=== PATIENT | male | born 1995 | race Caucasian/White ===

== ENCOUNTER → 2019-04-20 11:02 | Outpatient (BNVA) | payer MEDICAID, SELFPAY | PROVIDERS: Family Provider Nurse Practitioner Family; PCP Family Medicine; Visit Provider Nurse Practitioner | DX: F84.0 Autistic disorder (principal); F25.9 Schizoaffective disorder, unspecified; F91.3 Oppositional defiant disorder | CPT/HCPCS: 99213 ==

== ENCOUNTER → 2019-06-22 07:58 | Outpatient (BNVA) | payer MEDICAID, SELFPAY | PROVIDERS: Family Provider Nurse Practitioner Family; PCP Family Medicine; Visit Provider Nurse Practitioner | DX: F91.3 Oppositional defiant disorder (principal); F25.9 Schizoaffective disorder, unspecified; F84.0 Autistic disorder | CPT/HCPCS: 99214 ==

== ENCOUNTER → 2019-08-24 07:36 | Outpatient (BNVA) | payer MEDICAID, SELFPAY | PROVIDERS: Family Provider Nurse Practitioner Family; PCP Family Medicine; Visit Provider Nurse Practitioner | DX: F91.3 Oppositional defiant disorder (principal); F25.9 Schizoaffective disorder, unspecified; F84.0 Autistic disorder | CPT/HCPCS: 99213 ==

== ENCOUNTER → 2019-11-17 09:13 | Outpatient (BNVA) | payer MEDICAID, SELFPAY | PROVIDERS: Family Provider Nurse Practitioner Family; PCP Family Medicine; Visit Provider Nurse Practitioner | DX: F91.3 Oppositional defiant disorder (principal); F25.9 Schizoaffective disorder, unspecified; F84.0 Autistic disorder; Z79.899 Other long term (current) drug therapy | CPT/HCPCS: 99214 ==

== ENCOUNTER → 2019-12-23 08:58 | Outpatient (BNVA) | payer MEDICAID, SELFPAY | PROVIDERS: Family Provider Nurse Practitioner Family; PCP Family Medicine; Visit Provider Social Worker Clinical | DX: F84.0 Autistic disorder (principal); F25.9 Schizoaffective disorder, unspecified | CPT/HCPCS: 90832 ==

== ENCOUNTER → 2020-01-06 08:32 | Outpatient (BNVA) | payer MEDICAID, SELFPAY | PROVIDERS: Family Provider Nurse Practitioner Family; PCP Family Medicine; Visit Provider Social Worker Clinical | DX: F84.0 Autistic disorder (principal); F25.9 Schizoaffective disorder, unspecified | CPT/HCPCS: 90832 ==

== ENCOUNTER → 2020-01-13 09:10 | Outpatient (BNVA) | payer MEDICAID, SELFPAY | PROVIDERS: Family Provider Nurse Practitioner Family; PCP Family Medicine; Visit Provider Nurse Practitioner | DX: F91.3 Oppositional defiant disorder (principal); F25.9 Schizoaffective disorder, unspecified; F84.0 Autistic disorder | CPT/HCPCS: 99213 ==

== ENCOUNTER → 2020-01-25 08:23 | Outpatient (BNVA) | payer MEDICAID, SELFPAY | PROVIDERS: Family Provider Nurse Practitioner Family; PCP Family Medicine; Visit Provider Social Worker Clinical | DX: F84.0 Autistic disorder (principal); F25.9 Schizoaffective disorder, unspecified | CPT/HCPCS: 90832 ==

== ENCOUNTER → 2020-02-23 08:55 | Outpatient (BNVA) | payer MEDICAID, SELFPAY | PROVIDERS: Family Provider Nurse Practitioner Family; PCP Family Medicine; Visit Provider Social Worker Clinical | DX: F91.0 Conduct disorder confined to family context (principal); F84.0 Autistic disorder | CPT/HCPCS: 90832 ==

== ENCOUNTER → 2020-03-17 08:37 | Outpatient (BNVA) | payer MEDICAID, SELFPAY | PROVIDERS: Family Provider Nurse Practitioner Family; PCP Family Medicine; Visit Provider Nurse Practitioner | DX: F91.3 Oppositional defiant disorder (principal); F25.9 Schizoaffective disorder, unspecified; F84.0 Autistic disorder | CPT/HCPCS: 99214 ==

== ENCOUNTER → 2020-03-18 09:19 | Outpatient (BNVA) | payer MEDICAID, SELFPAY | PROVIDERS: Family Provider Nurse Practitioner Family; PCP Family Medicine; Visit Provider Counselor Mental Health | DX: F91.3 Oppositional defiant disorder (principal); F84.0 Autistic disorder | CPT/HCPCS: 90832 ==

== ENCOUNTER → 2020-03-25 10:45 | Outpatient (BNVA) | payer MEDICAID, SELFPAY | PROVIDERS: Family Provider Nurse Practitioner Family; PCP Family Medicine; Visit Provider Counselor Mental Health | DX: F91.3 Oppositional defiant disorder (principal); F84.0 Autistic disorder | CPT/HCPCS: 90832 ==

== ENCOUNTER → 2020-04-08 09:38 | Outpatient (BNVA) | payer MEDICAID, SELFPAY | PROVIDERS: Family Provider Nurse Practitioner Family; PCP Family Medicine; Visit Provider Counselor Mental Health | DX: F91.3 Oppositional defiant disorder (principal); F84.0 Autistic disorder | CPT/HCPCS: 90832 ==

== ENCOUNTER → 2020-05-02 08:49 | Outpatient (BNVA) | payer MEDICAID, SELFPAY | PROVIDERS: Family Provider Nurse Practitioner Family; PCP Family Medicine; Visit Provider Counselor Mental Health | DX: F91.3 Oppositional defiant disorder (principal); F84.0 Autistic disorder | CPT/HCPCS: 90832 ==

== ENCOUNTER → 2020-05-09 08:50 | Outpatient (BNVA) | payer MEDICAID, SELFPAY | PROVIDERS: Family Provider Nurse Practitioner Family; PCP Family Medicine; Visit Provider Counselor Mental Health | DX: F91.3 Oppositional defiant disorder (principal); F84.0 Autistic disorder | CPT/HCPCS: 90832 ==

== ENCOUNTER → 2020-05-16 07:33 | Outpatient (BNVA) | payer MEDICAID, SELFPAY | PROVIDERS: Family Provider Nurse Practitioner Family; PCP Family Medicine; Visit Provider Nurse Practitioner | DX: F91.3 Oppositional defiant disorder (principal); F25.9 Schizoaffective disorder, unspecified; F84.0 Autistic disorder | CPT/HCPCS: 99214 ==

== ENCOUNTER 2020-05-21 15:11 | Emergency (ER) | payer MEDICAID, SELFPAY ==
[2020-05-21 15:22] VITALS: BP 142/90; PULSE 105; RESP 18; TEMP 36.2; O2SAT 98; BMI 35.3
[2020-05-21] MEDS: sodium chloride 0.9% 1,000 ML 999 ML IV (16:03)
[2020-05-21 16:18] LABS: Basophils # 0.1 10^3/uL (0.0-0.1); Basophils % 0.6 %; Eosinophils # 0.2 10^3/uL (0.0-0.8); Hematocrit 45.8 % (42.0-52.0); Hemoglobin 14.4 g/dL (11.7-16.6); Lymphocytes # 1.8 10^3/uL (0.8-4.8); Lymphocytes % 20.4 %; Mean Corpuscular HGB Conc 31.4 g/dL (30.0-36.0); Mean Corpuscular Hemoglobin 26.2 pg (28.0-34.0); Mean Corpuscular Volume 83.4 fL (80-94); Mean Platelet Volume 9.6 fL (7.4-10.4); Monocytes # 0.5 10^3/uL (0.2-0.9); Neutrophils # 6.27 10^3/uL (1.8-7.7); Neutrophils % 70.9 %; Nucleated Red Blood Cells % 0 %; Platelet Count 342 10^3/cmm (130-400); Red Blood Count 5.49 10^6/uL (4.1-5.3); Red Cell Distribution Width 13.2 % (12.1-15.1); White Blood Count 8.8 10^3/uL (4.0-10.0)
--- NOTE | 2020-05-21 16:21 | CTR_ITS ---
PROCEDURE INFORMATION: Exam: CT Head Without Contrast Exam date and time: 05/21/2020 4:27 PM Age: 24 years old Clinical indication: Condition or disease; Convulsions or seizures; Unspecified; Patient HX: Seizure activity - recent med changes TECHNIQUE: Imaging protocol: Computed tomography of the head without contrast. Radiation optimization: All CT scans at this facility use at least one of these dose optimization techniques: automated exposure control; mA and/or kV adjustment per patient size (includes targeted exams where dose is matched to clinical indication); or iterative reconstruction. COMPARISON: No relevant prior studies available. RADIATION DOSE METRICS: Total DLP (mGy-cm): 1807.02 FINDINGS: Limitations: The study is slightly limited by mild patient motion artifact. Brain: No intracranial hemorrhage noted. No parenchymal edema identified. Cerebral ventricles: The ventricles are proportional to the sulci. No hydrocephalus is noted. Bones/joints: No fracture or other acute osseous abnormality. Paranasal sinuses: The paranasal sinuses, as demonstrated, appear clear. Mastoid air cells: The mastoid air cells are clear bilaterally. Soft tissues: The soft tissues appear unremarkable. CT/CT head wo con* [id number] IMPRESSION: 1. The study is slightly limited by mild patient motion artifact. 2. No acute intracranial abnormality demonstrated. Radiation Dose CTDIVOL = (mGy): DLP = 1807.02 (mGy-cm)
[2020-05-21] MEDS: LORazepam 2 mg/mL INJ 1 mL 0.5 MG IVP (16:28)
[2020-05-21 16:34] LABS: Alanine Aminotransferase 141 U/L (0-41); Albumin Level 4.4 g/dL (3.5-5.2); Alkaline Phosphatase 101 IU/L (40-130); Aspartate Amino Transferase 67 U/L (0-40); Blood Urea Nitrogen 10 mg/dL (6-20); Calcium 9.6 mg/dL (8.5-10.5); Carbon Dioxide 31 mmol/L (22-29); Chloride 99 mmol/L (98-107); Globulin 3.2 g/dL (1.3-4.6); Glucose 101 mg/dL (65-115); Osmolality Calculated 285 mOsm/kg (285-295); Sodium 138 mmol/L (136-145); Total Bilirubin 0.3 mg/dL (0.15-1.2); Total Protein 7.6 g/dL (6.6-8.7)
[2020-05-21 16:41] LABS: Acetaminophen < 5.0 ug/mL (10-30); Alcohol Level < 10 mg/dL (0-10); Salicylate < 0.3 mg/dL (3-10)
[2020-05-21 17:41] LABS: Add Urine Microscopic? NO
[2020-05-21 17:47] LABS: Bilirubin Urine Neg (Negative); Blood Urine Neg (Negative); Glucose Urine UA Norm (Normal); Ketones Urine Negative (Negative); Leukocyte Esterase Urine Negative (Negative); Nitrate Urine Negative (Negative); Protein Urine Neg (Negative); Urine Appearance Clear (CLEAR); Urine Color Straw (Yellow); Urobilinogen Urine Norm (Negative); pH Urine 7 (5-7)
[2020-05-21 17:54] LABS: Amphetamines Screen Urine Negative (Negative); Barbiturates Screen Urine Negative (Negative); Benzodiazepines Screen Urine Negative (Negative); Cocaine Screen Urine Negative (Negative); Opiate Screen Urine Negative (Negative); PCP Screen Urine Negative (Negative); THC Screen Urine Negative (Negative)
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
[2020-05-21 18:48] VITALS: BP 142/69; RESP 16; O2SAT 100
[2020-05-22 05:45] LABS: Hepatitis A Antibody IgM Non-Reactive (Nonreactive); Hepatitis B Core IgM Non-Reactive (Nonreactive); Hepatitis B Surface Antigen Non-Reactive (Nonreactive); Hepatitis C Virus Antibody Non-Reactive (Nonreactive)
== END 2020-05-21 18:49 | disposition home or self-care (01) ==
PROVIDERS: Emergency Provider Family Medicine; PCP Family Medicine
DX: G40.A09 Absence epileptic syndrome, not intractable, without status epilepticus (principal); R45.1 Restlessness and agitation; F84.0 Autistic disorder
CPT/HCPCS: 70450; 80053; 80074; 80306; 80307; 81003; 85025; 96361; 96374; 99284; J2060; J7030

== ENCOUNTER → 2020-05-24 15:13 | Outpatient (BNVA) | payer MEDICAID, SELFPAY | PROVIDERS: Family Provider Nurse Practitioner Family; PCP Family Medicine; Visit Provider Counselor Mental Health | DX: F91.3 Oppositional defiant disorder (principal); F84.0 Autistic disorder | CPT/HCPCS: 90832 ==

== ENCOUNTER → 2020-05-31 12:50 | Outpatient (BNVA) | payer MEDICAID, SELFPAY | PROVIDERS: Family Provider Nurse Practitioner Family; PCP Family Medicine; Visit Provider Counselor Mental Health | DX: F91.3 Oppositional defiant disorder (principal); F84.0 Autistic disorder; F25.9 Schizoaffective disorder, unspecified; Z79.899 Other long term (current) drug therapy | CPT/HCPCS: 90832 ==

== ENCOUNTER → 2020-06-06 08:51 | Outpatient (BNVA) | payer MEDICAID, SELFPAY | PROVIDERS: Family Provider Nurse Practitioner Family; PCP Family Medicine; Visit Provider Counselor Mental Health | DX: F91.3 Oppositional defiant disorder (principal); F84.0 Autistic disorder; F25.9 Schizoaffective disorder, unspecified; Z79.899 Other long term (current) drug therapy | CPT/HCPCS: 90832 ==

== ENCOUNTER → 2020-06-07 09:27 | Outpatient (BNVA) | payer MEDICAID, SELFPAY | PROVIDERS: Family Provider Nurse Practitioner Family; PCP Family Medicine; Visit Provider Nurse Practitioner | DX: F91.3 Oppositional defiant disorder (principal); F25.9 Schizoaffective disorder, unspecified; F84.0 Autistic disorder; R94.31 Abnormal electrocardiogram [ECG] [EKG] | CPT/HCPCS: 99214 ==

== ENCOUNTER → 2020-06-13 12:49 | Outpatient (BNVA) | payer MEDICAID, SELFPAY | PROVIDERS: Family Provider Nurse Practitioner Family; PCP Family Medicine; Visit Provider Counselor Mental Health | DX: F91.3 Oppositional defiant disorder (principal); F84.0 Autistic disorder; F25.9 Schizoaffective disorder, unspecified; Z79.899 Other long term (current) drug therapy | CPT/HCPCS: 90832 ==

== ENCOUNTER → 2020-06-27 13:48 | Outpatient (BNVA) | payer MEDICAID, SELFPAY | PROVIDERS: Family Provider Nurse Practitioner Family; PCP Family Medicine; Visit Provider Counselor Mental Health | DX: F91.3 Oppositional defiant disorder (principal); F84.0 Autistic disorder; F25.9 Schizoaffective disorder, unspecified; Z79.899 Other long term (current) drug therapy | CPT/HCPCS: 90834 ==

== ENCOUNTER → 2020-07-04 12:47 | Outpatient (BNVA) | payer MEDICAID, SELFPAY | PROVIDERS: Family Provider Nurse Practitioner Family; PCP Family Medicine; Visit Provider Nurse Practitioner | DX: F25.9 Schizoaffective disorder, unspecified (principal); F84.0 Autistic disorder; F91.3 Oppositional defiant disorder | CPT/HCPCS: 99214 ==

== ENCOUNTER → 2020-07-11 12:56 | Outpatient (BNVA) | payer MEDICAID, SELFPAY | PROVIDERS: Family Provider Nurse Practitioner Family; PCP Family Medicine; Visit Provider Counselor Mental Health | DX: F91.3 Oppositional defiant disorder (principal); F84.0 Autistic disorder; F25.9 Schizoaffective disorder, unspecified; Z79.899 Other long term (current) drug therapy | CPT/HCPCS: 90847; 90834 ==

== ENCOUNTER → 2020-07-25 14:05 | Outpatient (BNVA) | payer MEDICAID, SELFPAY | PROVIDERS: Family Provider Nurse Practitioner Family; PCP Family Medicine; Visit Provider Counselor Mental Health | DX: F91.3 Oppositional defiant disorder (principal); F84.0 Autistic disorder; F25.9 Schizoaffective disorder, unspecified; Z79.899 Other long term (current) drug therapy | CPT/HCPCS: 90832 ==

== ENCOUNTER → 2020-08-01 13:02 | Outpatient (BNVA) | payer MEDICAID, SELFPAY | PROVIDERS: Family Provider Nurse Practitioner Family; PCP Family Medicine; Visit Provider Nurse Practitioner | DX: F91.3 Oppositional defiant disorder (principal); F25.9 Schizoaffective disorder, unspecified; F84.0 Autistic disorder | CPT/HCPCS: 99214 ==

== ENCOUNTER → 2020-08-29 14:15 | Outpatient (BNVA) | payer MEDICAID, SELFPAY | PROVIDERS: Family Provider Nurse Practitioner Family; PCP Family Medicine; Visit Provider Nurse Practitioner | DX: F25.9 Schizoaffective disorder, unspecified (principal); F84.0 Autistic disorder; F91.3 Oppositional defiant disorder | CPT/HCPCS: 99214 ==

== ENCOUNTER → 2020-10-04 07:08 | Outpatient (BNVA) | payer MEDICAID, SELFPAY | PROVIDERS: Family Provider Nurse Practitioner Family; PCP Family Medicine; Visit Provider Nurse Practitioner | DX: F91.3 Oppositional defiant disorder (principal); F25.9 Schizoaffective disorder, unspecified; F84.0 Autistic disorder | CPT/HCPCS: 99214 ==

== ENCOUNTER → 2020-11-29 12:41 | Outpatient (BNVA) | payer MEDICAID, SELFPAY | PROVIDERS: Family Provider Nurse Practitioner Family; PCP Family Medicine; Visit Provider Nurse Practitioner | DX: F91.3 Oppositional defiant disorder (principal); F25.9 Schizoaffective disorder, unspecified; F84.0 Autistic disorder; F70 Mild intellectual disabilities | CPT/HCPCS: 99214 ==

== ENCOUNTER → 2020-12-07 08:32 | Outpatient (BNVA) | payer MEDICAID, SELFPAY | PROVIDERS: Family Provider Nurse Practitioner Family; PCP Family Medicine; Visit Provider Counselor Mental Health | DX: F91.3 Oppositional defiant disorder (principal); F84.0 Autistic disorder; F25.9 Schizoaffective disorder, unspecified; Z79.899 Other long term (current) drug therapy | CPT/HCPCS: 90832; 90847 ==

== ENCOUNTER → 2021-02-22 12:44 | Outpatient (BNVA) | payer MEDICAID, SELFPAY | PROVIDERS: Family Provider Nurse Practitioner Family; PCP Family Medicine; Visit Provider Nurse Practitioner | DX: F91.3 Oppositional defiant disorder (principal); F25.9 Schizoaffective disorder, unspecified; F84.0 Autistic disorder; F70 Mild intellectual disabilities | CPT/HCPCS: 99214 ==

== ENCOUNTER → 2021-03-21 07:59 | Outpatient (BNVA) | payer MEDICAID, SELFPAY | PROVIDERS: Family Provider Nurse Practitioner Family; PCP Family Medicine; Visit Provider Counselor Mental Health | DX: F91.3 Oppositional defiant disorder (principal); F84.0 Autistic disorder; F25.9 Schizoaffective disorder, unspecified; Z79.899 Other long term (current) drug therapy | CPT/HCPCS: 90834 ==

== ENCOUNTER → 2021-04-25 08:33 | Outpatient (BNVA) | payer MEDICAID, SELFPAY | PROVIDERS: Family Provider Nurse Practitioner Family; PCP Family Medicine; Visit Provider Counselor Mental Health | DX: F91.3 Oppositional defiant disorder (principal); F25.9 Schizoaffective disorder, unspecified; F84.0 Autistic disorder; Z79.899 Other long term (current) drug therapy | CPT/HCPCS: 90847 ==

== ENCOUNTER → 2021-05-17 10:51 | Outpatient (BNVA) | payer MEDICAID, SELFPAY | PROVIDERS: Family Provider Nurse Practitioner Family; PCP Family Medicine; Visit Provider Nurse Practitioner | DX: F70 Mild intellectual disabilities (principal); F91.3 Oppositional defiant disorder; F25.9 Schizoaffective disorder, unspecified; F84.0 Autistic disorder | CPT/HCPCS: 99214 ==

== ENCOUNTER → 2021-07-10 12:49 | Outpatient (BNVA) | payer MEDICAID, SELFPAY | PROVIDERS: Family Provider Nurse Practitioner Family; PCP Family Medicine; Visit Provider Nurse Practitioner | DX: F91.3 Oppositional defiant disorder (principal); F25.9 Schizoaffective disorder, unspecified; F84.0 Autistic disorder; F70 Mild intellectual disabilities | CPT/HCPCS: 99214 ==

== ENCOUNTER → 2021-08-14 13:53 | Outpatient (BNVA) | payer MEDICAID, SELFPAY | PROVIDERS: Family Provider Nurse Practitioner Family; PCP Family Medicine; Visit Provider Counselor Mental Health | DX: F91.3 Oppositional defiant disorder (principal); F84.0 Autistic disorder; F25.9 Schizoaffective disorder, unspecified; Z79.899 Other long term (current) drug therapy | CPT/HCPCS: 90834 ==

== ENCOUNTER → 2021-08-28 13:43 | Outpatient (BNVA) | payer MEDICAID, SELFPAY | PROVIDERS: Family Provider Nurse Practitioner Family; PCP Family Medicine; Visit Provider Counselor Mental Health | DX: F91.3 Oppositional defiant disorder (principal); F84.0 Autistic disorder; F25.9 Schizoaffective disorder, unspecified; Z79.899 Other long term (current) drug therapy | CPT/HCPCS: 90834 ==

== ENCOUNTER → 2021-09-04 10:41 | Outpatient (BNVA) | payer MEDICAID, SELFPAY | PROVIDERS: Family Provider Nurse Practitioner Family; PCP Family Medicine; Visit Provider Counselor Mental Health | DX: F91.3 Oppositional defiant disorder (principal); F84.0 Autistic disorder; F25.9 Schizoaffective disorder, unspecified; Z79.899 Other long term (current) drug therapy | CPT/HCPCS: 90834 ==

== ENCOUNTER → 2021-09-06 12:45 | Outpatient (BNVA) | payer MEDICAID, SELFPAY | PROVIDERS: Family Provider Nurse Practitioner Family; PCP Family Medicine; Visit Provider Nurse Practitioner | DX: F91.3 Oppositional defiant disorder (principal); F25.9 Schizoaffective disorder, unspecified; F84.0 Autistic disorder; F70 Mild intellectual disabilities | CPT/HCPCS: 99214 ==

== ENCOUNTER 2021-12-10 23:39 | Emergency (ER) | payer MEDICAID, SELFPAY ==
[2021-12-10 23:58] VITALS: BP 188/133; PULSE 109; RESP 26; TEMP 36.6; O2SAT 95; BMI 35.2
--- NOTE | 2021-12-11 00:15 | PC.NURSE ---
patient assisted to bathroom, continuing child like behavior, cooperative and pleasant, states that he peed his pants. urine sample was obtained at this time. clear yellow.
[2021-12-11 00:54] LABS: Add Urine Microscopic? NO
[2021-12-11 00:55] LABS: Bilirubin Urine Negative (Negative); Blood Urine Negative (Negative); Charge for UA Resulting for Rev; Glucose Urine UA Negative (Normal); Ketones Urine Negative (Negative); Leukocyte Esterase Urine Negative (Negative); Nitrate Urine Negative; Protein Urine Negative; Specific Gravity, Urine 1.025 (1.005-1.030); Urine Appearance Clear (CLEAR); Urine Color Yellow (Yellow); Urobilinogen Urine 0.2 mg/dL (Negative); pH Urine 6.5 (5-7)
--- NOTE | 2021-12-11 00:57 | PC.NURSE ---
patient crying in room, repeatedly calling for staff, stating he feels sorry for his parents, repeatedly attempting to exit room and go inside nursing station. patient redirected, attempted de-escalation.
[2021-12-11] MEDS: haloperidol inj 5 mg/mL INJ 1 mL IM (01:01)
--- NOTE | 2021-12-11 01:03 | PC.NURSE ---
patient asking to be covered up with a blanket, asking for staff to sit with him. patient speaking in a baby or child like voice. patient assisted to position of comfort, assessed, denies pain or injury or distress.
[2021-12-11 01:05] LABS: Amphetamines Screen Urine Negative (Negative); Barbiturates Screen Urine Negative (Negative); Benzodiazepines Screen Urine Negative (Negative); Cocaine Screen Urine Negative (Negative); Opiate Screen Urine Negative (Negative); PCP Screen Urine Negative (Negative); THC Screen Urine Negative (Negative)
--- NOTE | 2021-12-11 01:14 | PC.NURSE ---
patient repeatedly asking for staff, stating he is worried about his parents and dogs. patient comforted, active listening used.
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
[2021-12-11 01:43] VITALS: PULSE 85; RESP 18; O2SAT 92
--- NOTE | 2021-12-11 01:43 | PC.NURSE ---
patient resting eyes closed resp even and unlabored nad.
[2021-12-11 02:14] VITALS: BP 135/101; PULSE 118; RESP 18; TEMP 36.7; O2SAT 95; BMI 36.9
--- NOTE | 2021-12-11 02:38 | PC.NURSE ---
report given to geremias MCDERMOTT who is assuming care of patient.
== END 2021-12-11 09:50 | disposition home or self-care (01) ==
PROVIDERS: Emergency Provider Emergency Medicine; PCP Family Medicine
DX: F84.0 Autistic disorder (principal); F91.3 Oppositional defiant disorder; F25.9 Schizoaffective disorder, unspecified; Z79.84 Long term (current) use of oral hypoglycemic drugs
CPT/HCPCS: 80306; 81003; 96372; 99284; J1630

== ENCOUNTER 2023-09-22 16:27 | Emergency (ER) | payer MEDICAID, SELFPAY ==
[2023-09-22 16:32] VITALS: BP 148/80; PULSE 89; RESP 16; TEMP 36.8; O2SAT 95
--- NOTE | 2023-09-22 17:18 | W.ED.SEIZURE ---
HPI - Seizure General: Chief Complaint: Seizure Stated Complaint: had convulsions in the last hour Time Seen by Provider: 09/22/23 17:17 History of Present Illness: HPI Narrative: 27-year-old male patient was brought in by caregiver staff at his residential facility that he resides. Patient was noted to have 4 separate seizures seemingly [id number] within 30 minutes ranging from 10 seconds to 1 minute. Patient recently moved into the facility approximately 2 weeks ago. Staff members think that might be due to some stress because he had just talked to his mom on the phone just prior to the seizure. Staff said they talk to the mother again after the seizure episodes may recommend and she wished that he would be evaluated further in the emergency room to ensure no other signs of illness or injury was noted. Patient has no visible injuries. Patient is at baseline for self. Review of Systems General: Reports: 10 or more systems reviewed and unremarkable except in HPI and below Neuro: Reports: seizure-like activity [facility] ED PFSH: Medical History Autistic disorder Baseline state EKG abnormalities Mild intellectual disabilities On high dose antipsychotic drug therapy Oppositional defiant disorder Psychiatric care Schizoaffective disorder, unspecified Social History Smoking and tobacco/nicotine status: never used tobacco/nicotine Physical Exam Const: COMMON NORMALS: alert HENMT: COMMON NORMALS: normocephalic HEAD & SCALP: normocephalic Neck/C-Spine: COMMON NORMALS: full ROM Resp: COMMON NORMALS: normal respiratory effort and clear to auscultation bilaterally AUSCULTATION: clear to auscultation bilaterally Cardio: COMMON NORMALS: regular rate and regular rhythm RATE: regular rate RHYTHM: regular rhythm GI: COMMON NORMALS: Soft to palpation and non-tender PALPATION: Yes Soft to palpation Back/Pelvis: COMMON NORMALS: thoracic and lumbar spine normal to inspection Extremity: COMMON NORMALS: normal to inspection Neuro: SENSORIUM/ORIENTATION: Yes alert Skin: COMMON NORMALS: turgor normal GENERAL SKIN EXAM: turgor normal Course Vital Signs: Vital signs: Vital Signs Temperature 98.3 F 09/22/23 16:32 Pulse Rate 75 09/22/23 20:00 Respiratory Rate 18 09/22/23 20:00 Blood Pressure 130/72 09/22/23 20:00 Pulse Oximetry 96 09/22/23 20:00 Oxygen Delivery Me thod Room Air 09/22/23 18:07 MDM - Seizure MDM Narrative Medical decision making narrative: 27-year-old male patient comes in today for evaluation of seizure activity. Patient appears nontoxic. Patient appears in no acute distress. Respirations are even lungs are clear to auscultation. No focal neural deficits are noted. Patient is acting normal for self. Vital signs are normal except for some mild elevation of blood pressure at 148/80. Differential diagnosis includes but not limited to epileptic seizure, pseudoseizure, malingering, dehydration, electrolyte imbalance, anxiety disorder. Patient was resting well and his mother came in and his blood pressure elevated with his mother being here. Patient was then given clonidine and a dose of 1 mg of Ativan. CBC CMP was unremarkable. I believe that patient most likely had behavioral type seizures versus actual exacerbation of his epilepsy. Patient had no biting of the tongue and no urinary incontinence. Patient was recommended to follow-up with his primary care regarding his elevated blood pressure in the ER. Patient did have improvement of his blood pressure it was 130/72 at discharge. Lab Data 09/22/23 18:19 09/22/23 18:19 Labs: Laboratory Results WBC 10.50 10^3/uL (3.29-11.43) 09/22/23 18:19 RBC 5.02 10^6/uL (3.85-5.65) 09/22/23 18:19 Hgb 14.50 g/dL (11.27-16.99) 09/22/23 18:19 Hct 42.8 % (37-53) 09/22/23 18:19 MCV 85.3 fl (82-101) 09/22/23 18:19 MCH 28.9 pg (27-33) 09/22/23 18:19 MCHC 33.9 g/dL (30-55) 09/22/23 18:19 RDW 13.0 % (12.1-15.1) 09/22/23 18:19 Plt Count 288 10^3/cmm (157-399) 09/22/23 18:19 MPV 9.8 fL (7.4-10.4) 09/22/23 18:19 Neut % (Auto) 49.2 % 09/22/23 18:19 Lymph % (Auto) 40.0 % 09/22/23 18:19 Kay % (Auto) 8.2 % 09/22/23 18:19 Eos % (Auto) 1.8 % 09/22/23 18:19 Baso % (Auto) 0.6 % 09/22/23 18:19 Neut # (Auto) 5.17 10^3/uL (1.8-7.7) 09/22/23 18:19 Lymph # (Auto) 4.2 10^3/uL (0.8-4.8) 09/22/23 18:19 Kay # (Auto) 0.9 10^3/uL (0.2-0.9) 09/22/23 18:19 Eos # (Auto) 0.2 10^3/uL (0.0-0.8) 09/22/23 18:19 Baso # (Auto) 0.1 10^3/uL (0.0-0.1) 09/22/23 18:19 Nucleated RBC % (auto) 0 % 09/22/23 18:19 Nucleated RBCs # 0.0 /100WBC 09/22/23 18:19 Sodium 140 mmol/L (136-145) 09/22/23 18:19 Potassium 3.4 mmol/L (3.5-5.1) L 09/22/23 18:19 Chloride 101 mmol/L (98-107) 09/22/23 18:19 Carbon Dioxide 28 mmol/L (22-29) 09/22/23 18:19 Anion Gap 14.4 (5-19) 09/22/23 18:19 BUN 10 mg/dL (6-20) 09/22/23 18:19 Creatinine 0.6 mg/dL (0.7-1.2) L 09/22/23 18:19 GFR Calculation 162.9 mL/min (90-130) H 09/22/23 18:19 Glucose 99 mg/dL (65-115) 09/22/23 18:19 Calculated Osmolality 289 mOsm/kg (285-295) 09/22/23 18:19 Calcium 9.2 mg/dL (8.5-10.5) 09/22/23 18:19 Total Bilirubin 0.3 mg/dL (0.15-1.2) 09/22/23 18:19 AST 36 U/L (0-40) 09/22/23 18:19 ALT 92 U/L (0-41) H 09/22/23 18:19 Alkaline Phosphatase 91 U/L (40-130) 09/22/23 18:19 Total Protein 7.0 g/dL (6.6-8.7) 09/22/23 18:19 Albumin 4.3 g/dL (3.5-5.2) 09/22/23 18:19 Globulin 2.7 g/dL (1.3-4.6) 09/22/23 18:19 No radiology studies performed this visit Discharge Plan Discharge Patient Disposition: Home Clinical Impression: Epileptic seizure, Benign essential HTN Condition: Stable Prescriptions: No Action metformin 500 mg tablet 500 mg PO BID melatonin 10 mg capsule 10 mg PO .HS Qty: 30 1RF atorvastatin 20 mg tablet 20 mg PO DAILY lisinopril 5 mg tablet 5 mg PO DAILY lamotrigine 100 mg tablet 250 mg .ROUTE .COMPLEX Rx Instructions: 250 mg; fluvoxamine 100 mg tablet 100 mg PO DAILY Qty: 30 2RF paliperidone 6 mg tablet extended release 24hr 12 mg PO QAM Qty: 60 1RF trazodone 100 mg tablet See Rx Instructions .ROUTE .COMPLEX Qty: 120 0RF Dose Instruction: TAKE 4 TABLETS BY MOUTH DAILY Rx Instructions: TAKE 4 TABLETS BY MOUTH DAILY Vimpat 150 mg Tablet 150 mg PO BID@08,21 Discharge Orders: Discharge ED (Routine); Ordered 09/22/23 Ordered By: Agustin Tena Referrals: Celeste Humphries MD [Primary Care Provider] - Discharge Diet: Usual diet Discharge Activity: Increase activity as tolerated Patient Instructions: Epilepsy (ED) Activity Restrictions/Additional Instructions: Follow-up with primary care in 3 to 5 days for recheck of blood pressure. Continue with routine medications as directed. Return to ER as needed. Coding Level of Care Code ED Cut Off Saw Grader for Severiano Cervantes
[2023-09-22 18:07] VITALS: BP 152/78; PULSE 84; O2SAT 96
[2023-09-22 18:24] LABS: Basophils # 0.1 10^3/uL (0.0-0.1); Basophils % 0.6 %; Eosinophils # 0.2 10^3/uL (0.0-0.8); Eosinophils % 1.8 %; Hematocrit 42.8 % (37-53); Lymphocytes # 4.2 10^3/uL (0.8-4.8); Mean Corpuscular HGB Conc 33.9 g/dL (30-55); Mean Corpuscular Hemoglobin 28.9 pg (27-33); Mean Corpuscular Volume 85.3 fl (82-101); Mean Platelet Volume 9.8 fL (7.4-10.4); Monocytes # 0.9 10^3/uL (0.2-0.9); Monocytes % 8.2 %; Neutrophils # 5.17 10^3/uL (1.8-7.7); Neutrophils % 49.2 %; Nucleated Red Blood Cells % 0 %; Platelet Count 288 10^3/cmm (157-399); Red Blood Count 5.02 10^6/uL (3.85-5.65)
[2023-09-22 18:48] LABS: Alanine Aminotransferase 92 U/L (0-41); Albumin Level 4.3 g/dL (3.5-5.2); Alkaline Phosphatase 91 U/L (40-130); Anion Gap 14.4 (5-19); Aspartate Amino Transferase 36 U/L (0-40); Blood Urea Nitrogen 10 mg/dL (6-20); Calcium 9.2 mg/dL (8.5-10.5); Carbon Dioxide 28 mmol/L (22-29); Chloride 101 mmol/L (98-107); Creatinine Clr Calc Pharmacy 240.7363; Globulin 2.7 g/dL (1.3-4.6); Glomerular Filtration Rate 162.9 mL/min (90-130); Glucose 99 mg/dL (65-115); Osmolality Calculated 289 mOsm/kg (285-295); Potassium 3.4 mmol/L (3.5-5.1); Sodium 140 mmol/L (136-145); Total Bilirubin 0.3 mg/dL (0.15-1.2)
[2023-09-22 18:54] VITALS: BP 160/110
[2023-09-22] MEDS: LORazepam 2 mg Tablet PO (18:54)
[2023-09-22] MEDS: cloNIDine 0.1 mg Tablet PO (18:54)
[2023-09-22 18:55] VITALS: BP 169/110; PULSE 84; O2SAT 95
[2023-09-22 20:00] VITALS: BP 130/72; PULSE 75; RESP 18; O2SAT 96
== END 2023-09-22 20:11 | disposition home or self-care (01) ==
PROVIDERS: Emergency Medicine; Emergency Provider Nurse Practitioner Family; PCP Family Medicine
DX: G40.909 Epilepsy, unspecified, not intractable, without status epilepticus (principal); I10 Essential (primary) hypertension; Z79.899 Other long term (current) drug therapy
CPT/HCPCS: 36415; 80053; 85025; 99283

== ENCOUNTER 2023-10-14 17:37 | Inpatient (IN) | payer MEDICAID, SELFPAY ==
[2023-10-14 17:45] VITALS: BP 144/79; PULSE 81; TEMP 36.9; O2SAT 96; BMI 39.9
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
[2023-10-14 18:59] LABS: Basophils # 0.1 10^3/uL (0.0-0.1); Basophils % 0.6 %; Eosinophils # 0.2 10^3/uL (0.0-0.8); Hematocrit 39.3 % (37-53); Lymphocytes # 2.3 10^3/uL (0.8-4.8); Lymphocytes % 26.5 %; Mean Corpuscular HGB Conc 33.8 g/dL (30-55); Mean Corpuscular Volume 85.6 fl (82-101); Mean Platelet Volume 9.6 fL (7.4-10.4); Monocytes # 0.8 10^3/uL (0.2-0.9); Monocytes % 9.7 %; Neutrophils # 5.11 10^3/uL (1.8-7.7); Neutrophils % 60.3 %; Nucleated Red Blood Cells % 0 %; Platelet Count 363 10^3/cmm (157-399); Red Blood Count 4.59 10^6/uL (3.85-5.65); Red Cell Distribution Width 12.7 % (12.1-15.1); White Blood Count 8.48 10^3/uL (3.29-11.43)
[2023-10-14 19:24] VITALS: BP 133/78; PULSE 78; RESP 16; O2SAT 96
[2023-10-14 19:40] LABS: Alanine Aminotransferase 112 U/L (0-41); Albumin Level 4.4 g/dL (3.5-5.2); Alkaline Phosphatase 102 U/L (40-130); Anion Gap 17.7 (5-19); Aspartate Amino Transferase 39 U/L (0-40); Blood Urea Nitrogen 10 mg/dL (6-20); Calcium 9.4 mg/dL (8.5-10.5); Carbon Dioxide 25 mmol/L (22-29); Chloride 104 mmol/L (98-107); Creatinine Clr Calc Pharmacy 241.2156; Globulin 2.8 g/dL (1.3-4.6); Glomerular Filtration Rate 162.9 mL/min (90-130); Glucose 87 mg/dL (65-115); Osmolality Calculated 294 mOsm/kg (285-295); Potassium 3.7 mmol/L (3.5-5.1); Sodium 143 mmol/L (136-145); Total Bilirubin 0.4 mg/dL (0.15-1.2); Total Protein 7.2 g/dL (6.6-8.7)
[2023-10-14 19:45] LABS: Acetaminophen < 5.0 ug/mL (10-30); Alcohol Level < 10 mg/dL (0-10); Salicylate < 0.3 mg/dL (3-10)
[2023-10-14 19:53] LABS: Amphetamines Screen Urine Negative (Negative); Barbiturates Screen Urine Negative (Negative); Benzodiazepines Screen Urine Negative (Negative); Cocaine Screen Urine Negative (Negative); Opiate Screen Urine Negative (Negative); PCP Screen Urine Negative (Negative); THC Screen Urine Negative (Negative)
[2023-10-14 22:18] VITALS: BP 133/78; PULSE 78; RESP 16; TEMP 36.9; O2SAT 96
[2023-10-14 22:54] VITALS: BP 147/87; PULSE 79; RESP 22; TEMP 36.8; O2SAT 98
[2023-10-15 06:00] VITALS: BP 132/88; PULSE 82; RESP 18; TEMP 36.7; O2SAT 97
[2023-10-15] MEDS: lacosamide 50 mg Tablet 150 MG PO ×2 (07:44→20:24)
[2023-10-15] MEDS: atorvastatin 40 mg Tablet 20 MG PO (07:45)
[2023-10-15] MEDS: lamoTRIgine 100 mg Tablet 200 MG PO (07:45)
[2023-10-15] MEDS: metformin 500 mg Tablet 1000 MG PO (07:46)
[2023-10-15] MEDS: sertraline 50 mg Tablet PO (07:46)
[2023-10-15] MEDS: lisinopril 5 mg Tablet 10 MG PO (07:46)
[2023-10-15] MEDS: CLONazepam 0.5 mg Tablet PO ×3 (07:47→20:24)
[2023-10-15] MEDS: potassium chloride ER 10 mEq Tablet PO (07:47)
[2023-10-15] MEDS: cetirizine 10 mg Tablet PO (07:48)
[2023-10-15] MEDS: OLANZapine 5 mg ODT PO (09:58)
--- NOTE | 2023-10-15 10:25 | PC.NURSE ---
PT IS AGITATED AND UPSET ABOUT BEING HERE. PT IS TEARFUL AND JUST WANTS TO GO HOME. PT WAS GIVEN STRESS BALL AND POPIT TO PLAY WITH BUT THIS DID NOT HELP. A ONE TIME ORDER OF KLONOPIN 0.5MG WAS GIVEN A VERBAL ORDER BY DR. BERRIOS AND GIVEN TO THE PT BY THIS NURSE. CONTINUING TO MONITOR BEHAVIOR AND SECURITY IS PRESENT INCASE OF ESCALATION.
[2023-10-15] MEDS: benztropine 1 mg Tablet PO (12:32)
[2023-10-15 14:00] VITALS: BP 120/78; PULSE 90; RESP 18; TEMP 36.6; O2SAT 97
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
[2023-10-15] MEDS: FLUVOXAMINE 100 MG 0.5 EACH PO ×2 (16:39→20:26)
[2023-10-15 20:23] VITALS: BP 124/69; PULSE 71; RESP 18; TEMP 36.7; O2SAT 95
[2023-10-15] MEDS: trazodone 100 mg Tablet 400 MG PO (20:24)
[2023-10-15] MEDS: paliperidone ER 6 mg Tablet 12 MG PO (20:24)
[2023-10-16 06:00] VITALS: BP 120/72; PULSE 79; RESP 18; TEMP 36.8; O2SAT 95
[2023-10-16] MEDS: metformin 500 mg Tablet 1000 MG PO (08:06)
[2023-10-16] MEDS: cetirizine 10 mg Tablet PO (08:06)
[2023-10-16] MEDS: potassium chloride ER 10 mEq Tablet PO (08:06)
[2023-10-16] MEDS: lisinopril 5 mg Tablet 10 MG PO (08:06)
[2023-10-16] MEDS: lamoTRIgine 100 mg Tablet 200 MG PO (08:06)
[2023-10-16] MEDS: lacosamide 50 mg Tablet 150 MG PO (08:06)
[2023-10-16] MEDS: CLONazepam 0.5 mg Tablet PO (08:06)
[2023-10-16] MEDS: atorvastatin 40 mg Tablet 20 MG PO (08:06)
[2023-10-16] MEDS: FLUVOXAMINE 100 MG 0.5 EACH PO (08:10)
--- NOTE | 2023-10-16 08:54 | PC.NURSE ---
PT CURRENTLY DENIES SI/HI/AH/VH. PT STATES THAT NO MORE SUICIDAL THOUGHTS, AND MY ANGER FINALLY FEELS BETTER AGAIN. PT APPEARS CALMER THAN YESTERDAY, [facility] MGR IS PRESENT AND IS ASSISTING WITH FREQUENT DISTRACTION AND REDIRECTION DURING HIGH ANXIETY TIMES FOR PATIENT. PT WAS COOPERATIVE WITH ASSESSMENT AND MEDICATIONS. PT CURRENT NEEDS ARE MET AT THIS TIME.
[2023-10-16 13:31] VITALS: BP 123/74; PULSE 79; RESP 16; TEMP 36.8; O2SAT 96
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
[2023-10-16 15:49] VITALS: BP 123/74; PULSE 79; RESP 16; TEMP 36.8; O2SAT 96
== END 2023-10-16 16:36 | disposition home or self-care (01) | DRG 883 ==
LOC: ER 18:20 → NP 20:53
PROVIDERS: Admitting Provider Psychiatry & Neurology Psychiatry; Emergency Provider Physician Assistant; PCP Family Medicine; Visit Provider Psychiatry & Neurology Psychiatry
DX: F63.81 Intermittent explosive disorder (principal); R45.851 Suicidal ideations; F25.9 Schizoaffective disorder, unspecified; F84.0 Autistic disorder; F91.3 Oppositional defiant disorder; F70 Mild intellectual disabilities; F91.1 Conduct disorder, childhood-onset type
CPT/HCPCS: 36415; 80053; 80175; 80306; 80307; 85025; 97150; 97165; 99285

== ENCOUNTER 2023-10-24 16:21 | Inpatient (IN) | payer MEDICAID, SELFPAY ==
[2023-10-24 16:39] VITALS: BP 153/102; PULSE 99; RESP 17; TEMP 36.7; O2SAT 93
[2023-10-24 18:03] LABS: Amphetamines Screen Urine Negative (Negative); Barbiturates Screen Urine Negative (Negative); Benzodiazepines Screen Urine Negative (Negative); Cocaine Screen Urine Negative (Negative); Opiate Screen Urine Negative (Negative); PCP Screen Urine Negative (Negative); THC Screen Urine Negative (Negative)
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
--- NOTE | 2023-10-24 18:14 | ECG_ITS ---
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 Measurements Intervals [place] Rate: 57 P: 52 AK: 192 QRS: 67 QRSD: 94 T: 59 QT: 378 QTc: 369 Interpretive Statements SINUS BRADYCARDIA WITH MARKED SINUS ARRHYTHMIA No previous ECG available for comparison Electronically Signed On 10-25-2023 7:51:59 CDT by Ross Howard M.D. [id number]
[2023-10-24 18:16] LABS: Charge for UA Resulting for Rev
[2023-10-24 18:18] LABS: Basophils # 0.1 10^3/uL (0.0-0.1); Basophils % 0.6 %; Eosinophils # 0.1 10^3/uL (0.0-0.8); Eosinophils % 0.9 %; Hematocrit 37.7 % (37-53); Lymphocytes # 2.5 10^3/uL (0.8-4.8); Lymphocytes % 22.9 %; Mean Corpuscular HGB Conc 33.2 g/dL (30-55); Mean Corpuscular Volume 87.5 fl (82-101); Mean Platelet Volume 9.6 fL (7.4-10.4); Monocytes # 0.7 10^3/uL (0.2-0.9); Monocytes % 6.5 %; Neutrophils # 7.65 10^3/uL (1.8-7.7); Neutrophils % 68.8 %; Nucleated Red Blood Cells % 0 %; Platelet Count 285 10^3/cmm (157-399); Red Blood Count 4.31 10^6/uL (3.85-5.65); Red Cell Distribution Width 13.8 % (12.1-15.1); White Blood Count 11.11 10^3/uL (3.29-11.43)
[2023-10-24 18:20] LABS: Bilirubin Urine Negative (Negative); Blood Urine Negative (Negative); Glucose Urine UA Negative (Normal); Ketones Urine Trace (Negative); Leukocyte Esterase Urine Negative (Negative); Nitrate Urine Negative (Negative); Protein Urine Trace (Negative); Specific Gravity, Urine 1.028 (1.005-1.030); Urine Appearance Clear (CLEAR); Urine Color Yellow (Yellow)
[2023-10-24 18:45] LABS: Alanine Aminotransferase 52 U/L (0-41); Albumin Level 4.1 g/dL (3.5-5.2); Alcohol Level 13 mg/dL (0-10); Alkaline Phosphatase 96 U/L (40-130); Anion Gap 15.7 (5-19); Aspartate Amino Transferase 22 U/L (0-40); Blood Urea Nitrogen 12 mg/dL (6-20); Carbon Dioxide 27 mmol/L (22-29); Chloride 106 mmol/L (98-107); Creatinine Clr Calc Pharmacy 186.2362; Globulin 2.6 g/dL (1.3-4.6); Glomerular Filtration Rate 136.3 mL/min (90-130); Glucose 83 mg/dL (65-115); Osmolality Calculated 299 mOsm/kg (285-295); Potassium 3.7 mmol/L (3.5-5.1); Sodium 145 mmol/L (136-145); Thyroid Stimulating Hormone 2.66 uIU/mL (0.27-4.20); Total Bilirubin 0.4 mg/dL (0.15-1.2); Total Protein 6.7 g/dL (6.6-8.7)
[2023-10-24 18:48] LABS: Acetaminophen < 5.0 ug/mL (10-30); Salicylate < 0.3 mg/dL (3-10)
[2023-10-24 18:52] LABS: RBC Urine 0-4 /hpf (0-2); UA Manual Slide Review YES; UA Slide Review UA Slide Review Perf; WBC Urine 0-4 /hpf (0-5)
[2023-10-24 18:53] LABS: Add Urine Culture? No; Mucus Urine 2+ /hpf; Sperm Urine 1+ /hpf; Squamous Epithelial Cell Urine 0-4 /hpf (0-5)
[2023-10-24 18:58] LABS: Influenza A by IFA negative (Negative); Influenza B by IFA negative (Negative)
[2023-10-24 18:59] LABS: SARS Covid-2 Antigen negative (Negative)
[2023-10-24] MEDS: benztropine 1 mg/mL SDV 2 mL IM (19:35)
[2023-10-24] MEDS: water for injection-sterile 10 ML (19:36)
[2023-10-24] MEDS: ziprasidone 20 mg/mL SDV IM (19:36)
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
[2023-10-24 21:00] VITALS: BP 138/81; PULSE 52; RESP 14; O2SAT 95
[2023-10-25] VITALS (52 sets, daily range): BP systolic 131–169; BP diastolic 72–115; PULSE 55–83; RESP 16–23; O2SAT 90–96
--- NOTE | 2023-10-25 06:49 | PC.NURSE ---
pt calm and quiet since taking pt care over at 0530.
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
--- NOTE | 2023-10-25 08:38 | PC.PHAR ---
CAREGIVER PROVIDED MED LIST. PT LAST HAD MEDICATIONS SATURDAY MORNING BUT NO EVENING MEDS. 10/25/23
[2023-10-25] MEDS: LORazepam 2 mg/mL INJ 1 mL IM ×3 (09:24→11:28)
[2023-10-25] MEDS: haloperidol inj 5 mg/mL INJ 1 mL IM (09:24)
[2023-10-25] MEDS: ziprasidone 20 mg/mL SDV (10:47)
[2023-10-25] MEDS: water for injection-sterile 10 ML 999 ML (10:47)
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
[2023-10-25] MEDS: ketamine 100 mg/mL Inj 5 mL 399.2 MG IM (16:57)
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
[2023-10-25] MEDS: ketamine 100 mg/mL Inj 5 mL 400 MG IM (19:59)
--- NOTE | 2023-10-25 20:18 | PC.NURSE ---
PT WAS GETTING AGGRESIVE WITH STAFF, ATTEMPTED TO PUNCH BALDEMAR GO BUT MISSED. PT WAS PUNCHING BED. PT WAS PUT BACK INTO RESTRAINTS. NOTIFIED.
--- NOTE | 2023-10-25 20:51 | PC.NURSE ---
PT IS RESTING IN BED WITH EVEN RESPIRATIONS AND PATENT AIRWAY AT THIS TIME. PT REMAINS CALM AT THIS TIME.
--- NOTE | 2023-10-25 21:55 | PC.NURSE ---
PT IS OUT OF PHYSICAL RESTRAINTS. RESTING QUIETLY IN BED AT THIS TIME.
--- NOTE | 2023-10-25 22:59 | PC.NURSE ---
PT GOT UP AND STARTED PUNCHING THE WALL. THE PT WAS NOT COOPERATIVE WITH STAFF TO GET BACK INTO BED. PT CONTINUED TO PUNCH THE WALL, STAFF HAD TO PHYSICALLY RESTRAINT PT.
[2023-10-25] MEDS: OLANZapine 5 mg ODT PO (23:12)
[2023-10-25] MEDS: trazodone 50 mg Tablet PO (23:12)
--- NOTE | 2023-10-25 23:57 | PC.NURSE ---
PT IS OUT OF PHYSICAL RESTRAINTS AT THIS TIME.
[2023-10-26] VITALS: BP 127/71; O2SAT 93
--- NOTE | 2023-10-26 00:06 | PC.NURSE ---
Pt. yelling and complaining in room while in bed , wanting to go home. I have changed the patient's bed from the restraint bed to the in house bed for his comfort , at attempt to make him more comfortable and calm.
--- NOTE | 2023-10-26 00:54 | PC.NURSE ---
pt ambulated to restroom and back. pt resting quietly in bed at this time.
[2023-10-26 06:00] VITALS: BP 123/55; PULSE 90; O2SAT 94
[2023-10-26] MEDS: ketamine 100 mg/mL Inj 5 mL 399.2 MG IM ×2 (07:00→11:17)
[2023-10-26] MEDS: LORazepam 2 mg/mL INJ 1 mL IM ×3 (07:00→16:37)
--- NOTE | 2023-10-26 07:30 | PC.NURSE ---
THIS NURSE WITNESSED SECURITY AND NURSING STAFF RESTRAINING PATIENT. NURSING STAFF STATES PATIENT WAS HITTING HIS HEAD ON WALL AND DOOR, THIS NURSE NOTIFIED DR. RECIO OF PATIENT BEHAVIOR. DR. RECIO ORDERED SEDATION MEDICATION. MEDICATION ADMINISTERED. PT IN RESTRAINT BED WITH ONE ON ONE SITTER OUTSIDE ROOM. PT VITALS ON CONTINUOUS MONITOR.
[2023-10-26 07:42] VITALS: BP 153/98; PULSE 97; RESP 14; O2SAT 91
--- NOTE | 2023-10-26 10:46 | PC.NURSE ---
PATIENT REQUESTED CONTACT WAYLON BE CALLED. PATIENT STATED HE WOULD LIKE TO SEE WAYLON. THIS NURSE CONTACTED [facility] AND WAYLON STATED HE DID NOT WANT TO VISIT THE PATIENT.
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
--- NOTE | 2023-10-26 11:22 | PC.NURSE ---
PT REMOVED FROM RESTRAINT BED BY SECURITY AT 0822.
--- NOTE | 2023-10-26 12:24 | PC.NURSE ---
96 hr hold reviewed with patient @1135 with assistance of [facility] security program manager Gonzalo. Patient verbalized no concerns or questions when asked at this time. Patient copy was left at bedside. Patient answered no when asked if he wanted anything from HS beverage or snack ladd
[2023-10-26 12:33] VITALS: BP 156/90; PULSE 96; O2SAT 91
--- NOTE | 2023-10-26 14:04 | PC.NURSE ---
PT REMOVED FROM RESTRAINT BED AT [address] RECIO. PT AGREED NOT TO BE AGGRESSIVE AND TO REMAIN IN ROOM.
[2023-10-26 15:43] VITALS: BP 146/73; PULSE 106; RESP 18; TEMP 36.8; O2SAT 95
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
[2023-10-26] MEDS: haloperidol inj 5 mg/mL INJ 1 mL IM ×2 (16:36→17:34)
[2023-10-26] MEDS: benztropine 1 mg/mL SDV 2 mL IM ×2 (17:04→18:48)
--- NOTE | 2023-10-26 17:10 | W.PM.NPUPNS ---
Subjective NPU Subjective: Patient presented today reporting that he wanted to go home. We discussed the fact that he needed to demonstrate better self-control before we would be able to discharge him. He ultimately needed restraint and seclusion multiple times. He could not articulate what the reason was for him behaving in the way that he is. We discussed working with his outpatient resources to try to identify ways we can help with medication and otherwise. Mental Status Exam MSE Comments: This is an obese white male in hospital scrubs with limited grooming and eye contact. No abnormal movements except for psychomotor agitation. Uncooperative with exam and moderate to extreme distress. Speech was limited and increased rate and normal volume with a very childlike in nature and limited verbiage mostly related to wanting to go home. Mood not described affect agitated. Thought process linear. Thought content: Patient denied suicidal or homicidal ideation but had been demonstrating aggression towards others, there were no delusions reported or noted, he did not report auditory or visual hallucinations to this health technical writer. Attention and concentration were impaired and memory was unreliable but no more formally tested. He is alert and oriented times person and place. Insight, judgment and impulse control are impaired. Intellectual ability is impaired. Vitals/I&O/Wt Last Vital Signs Temp 98.2 F 10/26/23 15:43 Pulse 106 H 10/26/23 15:43 Resp 18 10/26/23 15:43 BP 146/73 10/26/23 15:43 Pulse Ox 95 10/26/23 15:43 O2 Del Method Room Air 10/26/23 16:05 Data NPU 10/24/23 18:11 10/24/23 18:11 A&P Assessment and plan (1) Intermittent explosive disorder: (2) Oppositional defiant disorder: (3) Autistic disorder: (4) Schizoaffective disorder, unspecified: (5) Suicidal ideation: Plan 27-year-old male with autistic disorder with a history of aggression, recently placed in a new [facility] with increased behavioral problems including threatening behavior and aggression towards staff who was admitted a little over a week ago with the same symptoms presents with worsening symptoms. 1.? Will admit to the neuropsychiatric unit in hopes that he might be less aggressive if he is less confined. 2.??Restart previous outpatient medications except changes below. 3. Will consider increasing Luvox to 150 mg total dose in split dosing. 4.??Continue one-to-one 5. Will attempt to gather collateral information Involuntary Hold Information 96 Hour Hold: 96 Hour Involuntary Admission: Yes 96 Hour Hold Ending Date: 11/01/23 96 Hour Hold Ending Time: 00:01 Attestations NPU Medical Necessity Statement*: Inpatient hospitalization is medically necessary and the clinically appropriate intervention at this time.? We will monitor/initiate medications and make changes as indicated.? The patient will be in the hospital for over 2 midnights.? The patient?s likely length of stay 7-10 days. Coding Level of Care Code Acute Code for [facility] Diagnoses Intermittent explosive disorder F63.81 Oppositional defiant disorder F91.3 Autistic disorder F84.0 Schizoaffective disorder, unspecified F25.9 Suicidal ideation R45.851
--- NOTE | 2023-10-26 17:51 | PC.NURSE ---
Addendum entered and electronically signed by Carley Marquis RN 10/26/23 18:28: NURSE MEDIA ASSISTANT WAS NOTIFIED AT 1710, OPTICAL GOODS WORKER WAS ON UNIT FOR RESTRAINT. Original Note: PT WAS AMBULATING UP AND DOWN THE TILLMAN AT APPROXIMATELY 1625 WITH PSA AT SIDE FOR ONE TO ONE OBSERVATION WHEN PT WAS OBSERVED STRIKING AND KICKING ANOTHER PT ON THE TILLMAN. STAFF QUICKLY ARRIVED AND OTHER PT WAS ABLE TO GET TO SAFETY. SECURITY ASSISTED PT TO THE FLOOR DUE TO PTS CONTINUED HITTING, KICKING AND BEING COMBATIVE, UNABLE TO TAKE VERBAL REDIRECTION. MANUAL HOLD WAS INITIATED (1626)WITH RN VLADISLAV MATT BEING PRESENT. PT WAS IN A MANUAL HOLD FOR APPROXIMATELY 2 MINUTES UNTIL ASSISTED TO THE RESTRAINT BED (1629) 4 POINT RESTRAINTS INITIATED. ONE TO ONE SITTER OBSERVATION CONTINUES. SECURITY REMAINS ON STANDBY FOR ASSISTANCE. THIS RN ADMINISTERED 2 MG ATIVAN IM AND 5 MG HALDOL IM ORDERED FOR SEVERE AGITATION AND AGGRESSION. DR. SHANNON WAS NOTIFIED AT 1636 OF PTS CONTINUED BEHAVIORS. PT WAS OBSERVED IN RESTRAINT BED THRASHING HEAD INTO THE SOFT BED. PT WAS ASKED TO STOP BUT CRIES I'M SORRY I KEEP SEEING HENRRY FROM FIRST BLOOD FROM [place]. NEW ORDERS WERE RECEIVED FROM DR. SHANNON TO GIVE COGENTIN 1 MG IM Q 6HOURS FOR EPS AND STATES MAY GIVE 5 MORE MG OF HALDOL IF PT DOES NOT CALM. RN WENT TO SPEAK WITH PT AND CHECK BREATHING, CIRCULATION AND SKIN WHEN PT CONTINUED TO STATE JUST LET ME OUT LET ME OUT PLEASE. CRITERIA FOR RELEASE WAS DISCUSSED WITH PT AND PT VERBALLY AGREES TO PLAN. RIGHT ARM WAS RELEASED BY THIS RN WITH SECURITY ON STANDBY AT 1647, PT WAS ABLE TO FOLLOW DIRECTIONS AND LEFT ARM WAS RELEASED AT 1650. AT 1652 BOTH LOWER EXTREMITIES WERE RELEASED AND RESTRAINTS WERE ENDED. IT WAS THEN DISCUSSED WITH TEAM THAT SECURITY WOULD CONTINUE TO BE WITH THE PT FOR ONE ON ONE OBSERVATIONS. PT THEN STATED HE IS STILL AGITATED AND GOING TO HAVE A SEIZURE. RN ASKED PT IF HIS MUSCLES WERE FEELING TIGHT AND PT RESPONDED YES YES TIGHT TIGHT. 1 MG OF COGENTIN WAS GIVEN IM ORDERED FOR EPS SYMPTOMS. ANOTHER 5MG OF HALDOL WAS GIVEN FOR CONTINUE AGITATION ORDERED. SEE MAR FOR TIMES AND DETAILS. VITALS REMAIN WNL AND FOLLOWS: AT 1630 BP 132/96, H R 114, RR 19, SPO2 94% ON RA. VITALS POST RESTRAINT RELEASE ARE 147/77, HR 81, RR 18, AND SPO2 99% ON RA. PT HAS BEEN ABLE TO BE VERBALLY REDIRECTED HAS USED PHONE AND APPEARS TO BE IN [employer] SPIRITS PT HAS NOT LAID DOWN OR RESTED SINCE MEDICATIONS WERE GIVEN. PT MOTHER WAS INFORMED OF SITUATION AND PTS MOTHER CONTINUES TO STATE SHE HAS GUARDIANSHIP PAPERWORK BUT CAN NOT BRING UNTIL SATURDAY. ALL QUESTIONS ANSWERED AND SUPPORT WAS VOICED.
[2023-10-26] MEDS: haloperidol inj 5 mg/mL INJ 1 mL 10 MG IM (18:48)
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
[2023-10-26 22:00] VITALS: RESP 20
[2023-10-26] MEDS: trazodone 100 mg Tablet 400 MG PO (23:35)
[2023-10-26] MEDS: potassium chloride ER 10 mEq Tablet PO (23:35)
[2023-10-26] MEDS: lamoTRIgine 100 mg Tablet 300 MG PO (23:35)
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
--- NOTE | 2023-10-27 02:46 | PC.NURSE ---
unable to obtain vital signs due to patient being in seclusion. Respiration Rate 20. looping inspector notified.
--- NOTE | 2023-10-27 04:48 | PC.NURSE ---
At 2354 pts home medications were reconciled and administered to him while he was still in seclusion. While giving medications pt was able to remain calm and cooperative. At this time nursing staff informed pt that if he could stay calm for awhile longer he could be released from seclusion and pt agreed. Awhile later this RN went and talked to pt and he was able to contract for safety. When staff asked pt if he could be released without hurting anybody he stated yes i just want to sleep. Pt was released from seclusion at 0026. Pt immediately went to his room and laid down. Pt has been resting in bed quietly with eyes closed since. Dr. Gtz was notified. Security still at bedside. Behavioral monitoring continues.
[2023-10-27 06:00] VITALS: RESP 18
--- NOTE | 2023-10-27 06:58 | PC.NURSE ---
vital signs not obtained due to pt resting. RN Charged notified. Respiration rate 18.
[2023-10-27] MEDS: lacosamide 50 mg Tablet 150 MG PO ×2 (08:45→17:51)
[2023-10-27] MEDS: lamoTRIgine 100 mg Tablet 300 MG PO (08:46)
[2023-10-27] MEDS: hyDROXYzine 25 mg Capsule PO ×3 (08:46→22:16)
[2023-10-27] MEDS: metformin XR 500 MG Tablet 1000 MG PO (08:46)
[2023-10-27] MEDS: atorvastatin 40 mg Tablet 20 MG PO (08:46)
[2023-10-27] MEDS: lisinopril 10 mg Tablet PO (08:46)
[2023-10-27] MEDS: cetirizine 10 mg Tablet PO (08:46)
[2023-10-27] MEDS: potassium chloride ER 10 mEq Tablet PO (08:46)
[2023-10-27] MEDS: OLANZapine 5 mg ODT PO ×2 (09:41→14:53)
[2023-10-27 14:00] VITALS: RESP 17
--- NOTE | 2023-10-27 14:14 | W.PM.NPUPNS ---
Subjective NPU Subjective: Patient presented today reporting that he is wanting to go home. This continues to be as mantra and what he is not focused on. He had another prolonged episode needing seclusion and restraint on multiple occasions. Spent time screaming and cursing staff as well as this mortgage underwriter with racial slurs. He continues to be unable to articulate any reason for his outbursts. Mental Status Exam MSE Comments: This is an obese white male in hospital scrubs with limited grooming and eye contact. No abnormal movements except for psychomotor agitation. Uncooperative with exam and moderate to extreme distress. Speech was limited and increased rate and normal volume with a very childlike in nature and limited verbiage mostly related to wanting to go home. Mood not described affect agitated. Thought process linear. Thought content: Patient denied suicidal or homicidal ideation but had been demonstrating aggression towards others, there were no delusions reported or noted, he did not report auditory or visual hallucinations to this mortgage underwriter. Attention and concentration were impaired and memory was unreliable but no more formally tested. He is alert and oriented times person and place. Insight, judgment and impulse control are impaired. Intellectual ability is impaired. Vitals/I&O/Wt Last Vital Signs Temp 98.2 F 10/26/23 15:43 Pulse 106 H 10/26/23 15:43 Resp 18 10/27/23 06:00 BP 146/73 10/26/23 15:43 Pulse Ox 95 10/26/23 15:43 O2 Del Method Room Air 10/26/23 16:05 Data NPU 10/24/23 18:11 10/24/23 18:11 A&P Assessment and plan (1) Intermittent explosive disorder: (2) Oppositional defiant disorder: (3) Autistic disorder: (4) Schizoaffective disorder, unspecified: (5) Suicidal ideation: Plan 27-year-old male with autistic disorder with a history of aggression, recently placed in a new [facility] with increased behavioral problems including threatening behavior and aggression towards staff who was admitted a little over a week ago with the same symptoms presents with worsening symptoms. 1.? Will admit to the neuropsychiatric unit in hopes that he might be less aggressive if he is less confined. 2.??Restart previous outpatient medications except changes below. 3. Will consider increasing Luvox to 150 mg total dose in split dosing. 50 mg p.o. every morning and 100 mg p.o. nightly. 4.??Continue one-to-one 5. Will attempt to gather collateral information Involuntary Hold Information 96 Hour Hold: 96 Hour Involuntary Admission: Yes 96 Hour Hold Ending Date: 11/01/23 96 Hour Hold Ending Time: 00:01 Attestations NPU Medical Necessity Statement*: Inpatient hospitalization is medically necessary and the clinically appropriate intervention at this time.? We will monitor/initiate medications and make changes as indicated.? The patient?s likely length of stay 7-10 days. Coding Level of Care Code Acute Code for Chg Fwd Diagnoses Intermittent explosive disorder F63.81 Oppositional defiant disorder F91.3 Autistic disorder F84.0 Schizoaffective disorder, unspecified F25.9 Suicidal ideation R45.851
[2023-10-27] MEDS: haloperidol inj 5 mg/mL INJ 1 mL 10 MG IM (15:38)
[2023-10-27] MEDS: benztropine 1 mg/mL SDV 2 mL IM (15:38)
[2023-10-27] MEDS: OLANZapine 10 mg VIAL IM (16:34)
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
--- NOTE | 2023-10-27 21:38 | PC.NURSE ---
Received call from Dr. Gtz stating to administer additional 50mg of Luvox if pt wakes up. Upon reviewing the chart pt has no current orders for luvox and is not carried by our pharmacy. Notified Dr. Gtz of medication not being available. Called [facility] to have them bring Luvox, [facility] will bring luvox tomorrow.
[2023-10-27 21:46] VITALS: BP 110/69; PULSE 96; RESP 18; TEMP 37; O2SAT 95
[2023-10-27] MEDS: trazodone 100 mg Tablet 400 MG PO (22:16)
[2023-10-27] MEDS: paliperidone ER 6 mg Tablet 12 MG PO (22:16)
[2023-10-28 06:00] VITALS: RESP 15
[2023-10-28] MEDS: lacosamide 50 mg Tablet 150 MG PO ×2 (07:41→18:34)
[2023-10-28] MEDS: metformin XR 500 MG Tablet 1000 MG PO (07:41)
[2023-10-28] MEDS: lamoTRIgine 100 mg Tablet 300 MG PO (07:42)
[2023-10-28] MEDS: potassium chloride ER 10 mEq Tablet PO (07:42)
[2023-10-28] MEDS: hyDROXYzine 25 mg Capsule PO ×3 (07:43→20:27)
[2023-10-28] MEDS: cetirizine 10 mg Tablet PO (07:43)
[2023-10-28] MEDS: atorvastatin 40 mg Tablet 20 MG PO (07:43)
[2023-10-28] MEDS: lisinopril 10 mg Tablet PO (07:44)
[2023-10-28 11:32] LABS: Charge for UA Resulting for Rev
[2023-10-28 11:54] LABS: Urine Appearance Slightly Cloudy (CLEAR); Urine Color Yellow (Yellow)
[2023-10-28 11:55] LABS: Bilirubin Urine 1+ (Negative); Blood Urine Neg (Negative); Glucose Urine UA Norm (Normal); Ketones Urine Negative (Negative); Leukocyte Esterase Urine Negative (Negative); Nitrate Urine Negative (Negative); Protein Urine 1+ (Negative); Specific Gravity, Urine 1.015 (1.005-1.030); UA Manual Slide Review YES; Urobilinogen Urine 4 mg/dL (Negative); pH Urine 6 (5-7)
[2023-10-28 11:56] LABS: WBC Urine 0-4 /hpf (0-5)
[2023-10-28 11:57] LABS: Add Urine Culture? No; Bacteria Urine TRACE /hpf; Sperm Urine 2+ /hpf
[2023-10-28] MEDS: FLUVOXAMINE PO ×2 (13:27→20:27)
[2023-10-28 14:00] VITALS: BP 114/66; PULSE 91; RESP 18; TEMP 36.8; O2SAT 93
[2023-10-28] MEDS: OLANZapine 10 mg VIAL IM (15:25)
[2023-10-28] MEDS: water for injection-sterile 10 ML (15:26)
--- NOTE | 2023-10-28 15:27 | PC.NURSE ---
Dr. Gtz requested this RN discontinue the ativan orders on the patient's chart. Orders discontinued.
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
[2023-10-28 19:44] VITALS: BP 132/61; PULSE 79; RESP 18; TEMP 36.6; O2SAT 95
[2023-10-28] MEDS: trazodone 100 mg Tablet 400 MG PO (20:27)
[2023-10-28] MEDS: paliperidone ER 6 mg Tablet 12 MG PO (20:27)
--- NOTE | 2023-10-28 20:40 | P.NPUPN_ITS ---
Subjective NPU 2 Subjective: Patient presented today reporting that he is wanting to go home. He continued to stress and really stressed the process by which things could improve and he could be discharged. 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 Mental Status Exam 2 MSE Comments: This is an obese white male in hospital scrubs with limited grooming and eye contact. No abnormal movements except for psychomotor agitation. Uncooperative with exam in mild to moderate distress. Speech was limited and increased rate and normal volume with a very childlike in nature and limited verbiage mostly related to wanting to go home. Mood not described affect a little less agitated. Thought process linear. Thought content: Patient denied suicidal or homicidal ideation but had been demonstrating aggression towards others, there were no delusions reported or noted, he did not report auditory or visual hallucinations to this designer/writer. Attention and concentration were impaired and memory was unreliable but no more formally tested. He is alert and oriented times person and place. Insight, judgment and impulse control are impaired. Intellectual ability is impaired. Vitals/I&O/Wt Last Vital Signs Temp 97.9 F 10/28/23 19:44 Pulse 79 10/28/23 19:44 Resp 18 10/28/23 19:44 BP 132/61 10/28/23 19:44 Pulse Ox 95 10/28/23 19:44 O2 Del Method Room Air 10/27/23 21:46 Data NPU 10/24/23 18:11 10/24/23 18:11 A&P Assessment and plan (1) Intermittent explosive disorder: (2) Oppositional defiant disorder: (3) Autistic disorder: (4) Schizoaffective disorder, unspecified: (5) Suicidal ideation: Plan 27-year-old male with autistic disorder with a history of aggression, recently placed in a new [facility] with increased behavioral problems including threatening behavior and aggression towards staff who was admitted a little over a week ago with the same symptoms presents with worsening symptoms. 1.? Will admit to the neuropsychiatric unit in hopes that he might be less aggressive if he is less confined. 2.??Restart previous outpatient medications except changes below. 3. Will consider increasing Luvox to 150 mg total dose in split dosing. 50 mg p.o. every morning and 100 mg p.o. nightly. 4.??Continue one-to-one 5. Will attempt to gather collateral information Involuntary Hold Information 2 96 Hour Hold: 96 Hour Involuntary Admission: Yes 96 Hour Hold Ending Date: 11/01/23 96 Hour Hold Ending Time: 00:01 Attestations NPU 2 Medical Necessity Statement*: Inpatient hospitalization is medically necessary and the clinically appropriate intervention at this time.? We will monitor/initiate medications and make changes as indicated.? The patient?s likely length of stay less than 9 days. Coding Level of Care Code Acute Code for Chg Fwd Diagnoses Intermittent explosive disorder F63.81 Oppositional defiant disorder F91.3 Autistic disorder F84.0 Schizoaffective disorder, unspecified F25.9 Suicidal ideation R45.851
[2023-10-29 06:00] VITALS: RESP 16
--- NOTE | 2023-10-29 06:27 | PC.NURSE ---
vital signs not obtained due to pt resting. RN Charged notified. Respiration rate 16
[2023-10-29] MEDS: lacosamide 50 mg Tablet 150 MG PO ×2 (07:32→17:43)
[2023-10-29] MEDS: lisinopril 10 mg Tablet PO (07:32)
[2023-10-29] MEDS: cetirizine 10 mg Tablet PO (07:33)
[2023-10-29] MEDS: lamoTRIgine 100 mg Tablet 300 MG PO (07:33)
[2023-10-29] MEDS: hyDROXYzine 25 mg Capsule PO ×3 (07:33→19:41)
[2023-10-29] MEDS: potassium chloride ER 10 mEq Tablet PO (07:33)
[2023-10-29] MEDS: atorvastatin 40 mg Tablet 20 MG PO (07:33)
[2023-10-29] MEDS: metformin XR 500 MG Tablet 1000 MG PO (07:33)
[2023-10-29] MEDS: FLUVOXAMINE PO ×2 (07:34→19:41)
[2023-10-29] MEDS: OLANZapine 10 mg VIAL IM (12:48)
[2023-10-29] MEDS: water for injection-sterile 10 ML (12:48)
--- NOTE | 2023-10-29 12:50 | PC.NURSE ---
Another patient began talking to this patient and stated that he could cure his autism. Staff could visible observe Mr. Gresham becoming agitated as he started to clench his fists and his face became red. This RN asked the other patient to please focus on his own wellbeing. Mr. Gresham then agreed to color a picture for this RN to help calm himself. The other patient approached him once again and began talking to him, making him angrier. This RN reiterated to the other patient that we would like him to avoid contact with said patient at this time. Mr. Gresham began making saluting motions and stating that he was starting to get really mad. Dr. Gtz was notified and life sciences manager, Carmen, were notified. Zyprexa 10mg IM administered and patient now resting in his room. Security has been present as well.
[2023-10-29 14:00] VITALS: BP 129/80; PULSE 86; RESP 20; TEMP 36.9; O2SAT 95
[2023-10-29] MEDS: paliperidone ER 6 mg Tablet 12 MG PO (19:40)
[2023-10-29] MEDS: trazodone 100 mg Tablet 400 MG PO (19:41)
[2023-10-29 20:06] VITALS: BP 148/75; PULSE 84; RESP 18; TEMP 36.9; O2SAT 94
--- NOTE | 2023-10-29 21:43 | P.NPUPN_ITS ---
Subjective NPU 2 Subjective: Patient presented today reporting that he is feeling better. We continue to discuss his elicit a discharge. He was taken off of one-to-one observation and has avoided aggressive incidences. When he has been frustrated he has been unable to ask for assistance whether that is with a as needed medication or removal to a less activating environment. He denied any side effects to the medications. Mental Status Exam 2 MSE Comments: This is an obese white male in hospital scrubs with limited grooming and eye contact. No abnormal movements except for resolving psychomotor agitation. More cooperative with exam in mild distress. Speech was more spontaneous and decreased rate and normal volume with a very childlike nature. Mood described as better affect less agitated. Thought process linear. Thought content: Patient denied suicidal or homicidal ideation, there were no delusions reported or noted, he did not report auditory or visual hallucinations to this selling underwriter. Attention and concentration were limited but improving and memory was unreliable but none were formally tested. He is alert and oriented times x 3. Insight, judgment and impulse control are improving. Intellectual ability is impaired. Vitals/I&O/Wt Last Vital Signs Temp 98.5 F 10/29/23 20:06 Pulse 84 10/29/23 20:06 Resp 18 10/29/23 20:06 BP 148/75 10/29/23 20:06 Pulse Ox 94 10/29/23 20:06 O2 Del Method Room Air 10/27/23 21:46 Data NPU 10/24/23 18:11 10/24/23 18:11 A&P Assessment and plan (1) Intermittent explosive disorder: (2) Oppositional defiant disorder: (3) Autistic disorder: (4) Schizoaffective disorder, unspecified: (5) Suicidal ideation: Plan 27-year-old male with autistic disorder with a history of aggression, recently placed in a new [facility] with increased behavioral problems including threatening behavior and aggression towards staff who was admitted a little over a week ago with the same symptoms presents with worsening symptoms. 1.? Will attempt to gather collateral information 2.??Restart previous outpatient medications except changes below. 3. Will consider increasing Luvox to 150 mg total dose in split dosing. 50 mg p.o. every morning and 100 mg p.o. nightly. 4.??Changed to every 15 minute checks with one-to-one staff on unit. Involuntary Hold Information 2 96 Hour Hold: 96 Hour Involuntary Admission: Yes 96 Hour Hold Ending Date: 11/01/23 96 Hour Hold Ending Time: 00:01 Attestations NPU 2 Medical Necessity Statement*: Inpatient hospitalization is medically necessary and the clinically appropriate intervention at this time.? We will monitor/initiate medications and make changes as indicated.? The patient?s likely length of stay less than 4 days. Coding Level of Care Code Acute Code for g Fwd Diagnoses Intermittent explosive disorder F63.81 Oppositional defiant disorder F91.3 Autistic disorder F84.0 Schizoaffective disorder, unspecified F25.9 Suicidal ideation R45.851
[2023-10-30 06:00] VITALS: BP 118/64; PULSE 58; RESP 16; O2SAT 96
[2023-10-30] MEDS: hyDROXYzine 25 mg Capsule PO ×3 (07:19→20:20)
[2023-10-30] MEDS: lisinopril 10 mg Tablet PO (07:19)
[2023-10-30] MEDS: metformin XR 500 MG Tablet 1000 MG PO (07:19)
[2023-10-30] MEDS: lamoTRIgine 100 mg Tablet 300 MG PO (07:19)
[2023-10-30] MEDS: potassium chloride ER 10 mEq Tablet PO (07:19)
[2023-10-30] MEDS: lacosamide 50 mg Tablet 150 MG PO ×2 (07:19→18:18)
[2023-10-30] MEDS: cetirizine 10 mg Tablet PO (07:20)
[2023-10-30] MEDS: atorvastatin 40 mg Tablet 20 MG PO (07:20)
[2023-10-30] MEDS: OLANZapine 5 mg ODT PO (07:20)
[2023-10-30] MEDS: FLUVOXAMINE PO ×2 (07:20→20:23)
--- NOTE | 2023-10-30 08:20 | P.NPUPN_ITS ---
Subjective NPU 2 Subjective: Patient presented today reporting that doing okay. We discussed making sure that he got the oral Zyprexa when he was feeling a need to have some space for feeling agitated. Otherwise he continued to ask about what he needed to do to be discharged and we continue to discuss the likelihood of discharge by Saturday. He denies any side effects to his medication. Mental Status Exam 2 MSE Comments: This is an obese white male in hospital scrubs with limited grooming and eye contact. No abnormal movements except for resolving psychomotor agitation. More cooperative with exam in mild distress. Speech was more spontaneous and decreased rate and normal volume with a very childlike nature. Mood described as better affect less agitated. Thought process linear. Thought content: Patient denied suicidal or homicidal ideation, there were no delusions reported or noted, he did not report auditory or visual hallucinations to this justowriter operator. Attention and concentration were limited but improving and memory was unreliable but none were formally tested. He is alert and oriented times x 3. Insight, judgment and impulse control are improving. Intellectual ability is impaired. Vitals/I&O/Wt Last Vital Signs Temp 98.5 F 10/29/23 20:06 Pulse 58 L 10/30/23 06:00 Resp 16 10/30/23 06:00 BP 118/64 10/30/23 06:00 Pulse Ox 96 10/30/23 06:00 O2 Del Method Room Air 10/27/23 21:46 Data NPU 10/24/23 18:11 10/24/23 18:11 A&P Assessment and plan (1) Intermittent explosive disorder: (2) Oppositional defiant disorder: (3) Autistic disorder: (4) Schizoaffective disorder, unspecified: (5) Suicidal ideation: Plan 27-year-old male with autistic disorder with a history of aggression, recently placed in a new ISL with increased behavioral problems including threatening behavior and aggression towards staff who was admitted a little over a week ago with the same symptoms presents with worsening symptoms. 1.? Will attempt to gather collateral information 2.??Restart previous outpatient medications except changes below. 3. Will consider increasing Luvox to 150 mg total dose in split dosing. 50 mg p.o. every morning and 100 mg p.o. nightly. 4.??Changed to every 15 minute checks with one-to-one staff on unit. Involuntary Hold Information 2 96 Hour Hold: 96 Hour Involuntary Admission: Yes 96 Hour Hold Ending Date: 11/01/23 96 Hour Hold Ending Time: 00:01 Attestations NPU 2 Medical Necessity Statement*: Inpatient hospitalization is medically necessary and the clinically appropriate intervention at this time.? We will monitor/initiate medications and make changes as indicated.? The patient?s likely length of stay less than 3 days. Coding Level of Care Code Acute Code for g Fwd Diagnoses Intermittent explosive disorder F63.81 Oppositional defiant disorder F91.3 Autistic disorder F84.0 Schizoaffective disorder, unspecified F25.9 Suicidal ideation R45.851
[2023-10-30] MEDS: OLANZapine 10 mg VIAL IM (08:50)
[2023-10-30] MEDS: water for injection-sterile 10 ML (08:54)
--- NOTE | 2023-10-30 09:26 | PC.NURSE ---
PT CURRENTLY DENIES SI/HI/AH/VH. PT CURRENTLY DENIES DEPRESSION. PT DENIES ANXIETY HOWEVER PT STATES MY AUTISM IS ACTING UP AND APPEARS ANXIOUS. THIS NURSE PROVIDED PT WITH HIS MORNING MEDICATIONS AND A PRN MEDICATION FOR ANXIETY. PT BEHAVIOR CONTINUED TO ESCALATE FROM PRETENDING TO SHOOT IMAGINARY FIRE ARMS TO SPEAKING THAI AND HAILING HITLER . PT BEHAVIOR CONTINUED TO ESCALATE TO WHERE HE WAS IRRITABLE WITH STAFF AND YELLING. PT WAS GIVEN OPTIONS TO GO TO HIS ROOM AND CALM DOWN OR TO RECEIVE MEDICATIONS. PT WENT TO HIS ROOM. PT REQUESTED TO SEE MANAGER PROPERTY JUSTA BUI HE HAS BUILT A REPORT WITH HER AND REQUESTED FOR HER TO ADMINISTER PRN 10MG IM ZYPREXA. PT WAS COOPERATIVE WITH THIS MEDICATIONS. PT IS CURRENTLY RESTING IN BED AT THIS TIME. PT CURRENT NEEDS ARE MET AT THIS TIME.
[2023-10-30 14:00] VITALS: BP 117/71; PULSE 77; RESP 16; TEMP 36.7; O2SAT 95
[2023-10-30] MEDS: OLANZapine 5 mg ODT 10 MG PO (15:15)
[2023-10-30] MEDS: haloperidol 5 mg Tablet PO (18:18)
[2023-10-30 20:14] VITALS: BP 137/78; PULSE 77; RESP 18; TEMP 36.7; O2SAT 93
[2023-10-30] MEDS: trazodone 100 mg Tablet 400 MG PO (20:20)
[2023-10-30] MEDS: paliperidone ER 6 mg Tablet 12 MG PO (20:20)
[2023-10-31 06:00] VITALS: BP 130/76; PULSE 76; RESP 18; TEMP 37; O2SAT 96
[2023-10-31] MEDS: atorvastatin 40 mg Tablet 20 MG PO (07:46)
[2023-10-31] MEDS: OLANZapine 5 mg ODT 10 MG PO ×2 (07:47→16:14)
[2023-10-31] MEDS: hyDROXYzine 25 mg Capsule PO ×3 (07:47→21:43)
[2023-10-31] MEDS: lacosamide 50 mg Tablet 150 MG PO ×2 (07:47→16:14)
[2023-10-31] MEDS: metformin XR 500 MG Tablet 1000 MG PO (07:47)
[2023-10-31] MEDS: lamoTRIgine 100 mg Tablet 300 MG PO (07:48)
[2023-10-31] MEDS: potassium chloride ER 10 mEq Tablet PO (07:49)
[2023-10-31] MEDS: lisinopril 10 mg Tablet PO (07:49)
[2023-10-31] MEDS: cetirizine 10 mg Tablet PO (07:49)
[2023-10-31] MEDS: FLUVOXAMINE PO ×2 (07:52→21:41)
[2023-10-31] MEDS: OLANZapine 10 mg VIAL IM (08:54)
--- NOTE | 2023-10-31 08:57 | PC.NURSE ---
PT CONTINUES TO ESCALATE AFTER RECIEVING ORAL MEDICATION. PT UP IN THE [place] CONTINUING TO PRETEND TO SHOOT PEOPLE AND STATES HE WANTS TO SHOOT HIMSELF. THIS SPECIFICATIONS WRITER CALLED DR. SHANNON AND HE WANTED STAFF TO GIVE INJECTION OF OLANZAPINE 10MG. INJECTION WAS GIVEN WITH SECURITY PRESENT. PT IS NOW RESTING IN BED QUIETLY
--- NOTE | 2023-10-31 10:11 | PC.NURSE ---
PACING HALLS THIS AM AND OBSERVED MAKING GUN SIGNS AND ACTS LIKE HE SHOOTING AT STAFF AND PEERS. PT HAS BEEN REDIRECTED MULTIPLE TIMES. PT IS NOTED TO BE INTRUSIVE, IMPULSIVE AND YELLS THROUGH THE WINDOW ALL MORNING. SPEECH IS ANIMATED, GARBLED, SLURRED AND DIFFICULT TO UNDERSTAND. PT WAS GIVEN ZYDIS 10 MG PO ORDERED FOR INCREASED AGITATION. PT CONTINUED TO CUSS, YELL AND SCREAM. PT CONTINUED BEHAVIORS WAS ROLLING AROUND IN THE FLOOR BY NURSES STATION. SUPERVISOR ELECTRIC SPOKE WITH AND HE AGREED TO SUPERVISOR ELECTRIC GIVING ZYPREXA 10 MG IM. PT WAS GIVEN MEDICATIONS ORDERED BUT CONTINUES NEGATIVE BEHAVIORS. DENIES SI/HI AND AVH AT THIS TIME. RATES ANXIETY / AND DEPRESSION /. PT IS UNABLE TO REDIRECT DESPITE MULTIPLE PHARMACEUTICAL INTERVENTIONS. SUPPORT VOICED.
--- NOTE | 2023-10-31 11:05 | PC.NURSE ---
ONE HOUR FACE TO FACE COMPLETED AT 1058 BY THIS CEMENT [address]. PT CURRENTLY RESTING IN SECLUSION ROOM. PLAN TO DISCONTINUE SECLUSION IF PT CAN CONTINUE TO DISPLAY CALM BEHAVIOR.
--- NOTE | 2023-10-31 11:07 | PC.NURSE ---
Addendum entered and electronically signed by Carley Marquis RN 10/31/23 11:22: AT 1115 AM PT WAS OBSERVED IN SECLUSION WITH EYES CLOSED, RESTING, THIS RN OPENED DOOR TO SECLUSION AND IT WAS ENDED. DR. SHANNON AND [employer] NOTIFIED OF DISCONTINUED SECLUSION. PT CONTINUES TO REST ON MATTRESS AND EYES ARE CLOSED, LIGHTS SHUT OFF DUE TO PTS CONTINUAL ISSUE WITH OVER STIMULATION. ORDERS RECEIVED TO DISCONTINUE ONE ON ONE OBSERVATION. PT WILL BE ALLOWED TO REST WITH DOOR OPEN AND USE ROOM FOR QUIET TIME AND TO PROVIDE DECREASED STIMULATION. SECLUSION DISCONTINUED AT 1115 AM. Original Note: PT HAD CONTINUED BEHAVIORS OF KICKING, HITTING,BANGING HEAD, KARATE KICKING/HITTING, ACTING LIKE HE IS SHOOTING STAFF/PATIENTS/AND FALL INTO THE FLOOR ROLLING AROUND LIKE PT IS DODGING BULLETS. PT HAS BEEN REDIRECTED MULTIPLE TIMES, MEDICATIONS WERE GIVEN ORDERED, SEE MAR FOR DETAILS. BEHAVIORS CONTINUED AND NPU [employer] AND SECURITY ASSISTED PT TO THE SECLUSION ROOM TO CALM DOWN. SECLUSION FOR VIOLENT RESTRAINT WAS INITIATED AT 1008. DR. SHANNON WAS NOTIFIED FOR ORDERS PRIOR TO SECLUSION. ORDERS RECEIVED TO PLACE PT IN SECLUSION DUE TO HARM TO SELF AND THREATENING OTHERS. PT WAS OBSERVED WHILE IN SECLUSION BANGING CLOSED FISTS ON DOORS, QUIROS AND WINDOW. PT WAS EDUCATED ON CRITERIA TO END SECLUSION AND THE EXPECTATIONS THAT NEED TO BE MET. FACE TO FACE COMPLETED AND SECLUSION WAS CONTINUES. PT IS OBSERVED GETTING SLEEPY AND TRYING TO REST. ALL QUESTIONS ANSWERED AND SUPPORT WAS VOICED.
[2023-10-31] MEDS: haloperidol 5 mg Tablet PO (12:22)
[2023-10-31 13:55] VITALS: BP 131/90; PULSE 84; RESP 16; TEMP 36.6; O2SAT 95
--- NOTE | 2023-10-31 14:18 | P.NPUPN_ITS ---
Subjective NPU 2 Subjective: Patient presented today reporting that doing okay. He continues to have significantly better management of his agitation and irritable tendencies since admission. He continues to avoid restraints or seclusion and is able to identify when there is a need to assist occupy space. He continues to be encouraged to do this. We discussed discharge in the next 48 hours. Mental Status Exam 2 MSE Comments: This is an obese white male in hospital scrubs with limited grooming and eye contact. No abnormal movements except for resolving psychomotor agitation. More cooperative with exam in mild distress. Speech was more spontaneous and decreased rate and normal volume with a very childlike nature. Mood described as better affect less agitated. Thought process linear. Thought content: Patient denied suicidal or homicidal ideation, there were no delusions reported or noted, he did not report auditory or visual hallucinations to this service writer. Attention and concentration were limited but improving and memory was unreliable but none were formally tested. He is alert and oriented times x 3. Insight, judgment and impulse control are improving. Intellectual ability is impaired. Vitals/I&O/Wt Last Vital Signs Temp 98 F 10/31/23 13:55 Pulse 84 10/31/23 13:55 Resp 16 10/31/23 13:55 BP 131/90 10/31/23 13:55 Pulse Ox 95 10/31/23 13:55 O2 Del Method Room Air 10/27/23 21:46 Data NPU 10/24/23 18:11 10/24/23 18:11 A&P Assessment and plan (1) Intermittent explosive disorder: (2) Oppositional defiant disorder: (3) Autistic disorder: (4) Schizoaffective disorder, unspecified: (5) Suicidal ideation: Plan 27-year-old male with autistic disorder with a history of aggression, recently placed in a new ISL with increased behavioral problems including threatening behavior and aggression towards staff who was admitted a little over a week ago with the same symptoms presents with worsening symptoms. 1.? Will attempt to gather collateral information 2.??Restart previous outpatient medications except changes below. 3. Will consider increasing Luvox to 150 mg total dose in split dosing. 50 mg p.o. every morning and 100 mg p.o. nightly. 4.??Changed to every 15 minute checks with one-to-one staff on unit. Involuntary Hold Information 2 96 Hour Hold: 96 Hour Involuntary Admission: Yes 96 Hour Hold Ending Date: 11/01/23 96 Hour Hold Ending Time: 00:01 Attestations NPU 2 Medical Necessity Statement*: Inpatient hospitalization is medically necessary and the clinically appropriate intervention at this time.? We will monitor/initiate medications and make changes as indicated.? The patient?s likely length of stay less than 2 days. Coding Level of Care Code Acute Code for g Fwd Diagnoses Intermittent explosive disorder F63.81 Oppositional defiant disorder F91.3 Autistic disorder F84.0 Schizoaffective disorder, unspecified F25.9 Suicidal ideation R45.851
[2023-10-31 19:35] VITALS: BP 151/85; PULSE 81; RESP 17; TEMP 36.7; O2SAT 93
[2023-10-31] MEDS: paliperidone ER 6 mg Tablet 12 MG PO (21:42)
[2023-10-31] MEDS: trazodone 100 mg Tablet 400 MG PO (21:43)
[2023-11-01 06:00] VITALS: BP 130/83; PULSE 95; RESP 18; TEMP 36.4; O2SAT 91
[2023-11-01] MEDS: atorvastatin 40 mg Tablet 20 MG PO (08:12)
[2023-11-01] MEDS: lisinopril 10 mg Tablet PO (08:12)
[2023-11-01] MEDS: lacosamide 50 mg Tablet 150 MG PO (08:12)
[2023-11-01] MEDS: FLUVOXAMINE PO (08:12)
[2023-11-01] MEDS: potassium chloride ER 10 mEq Tablet PO (08:12)
[2023-11-01] MEDS: cetirizine 10 mg Tablet PO (08:12)
[2023-11-01] MEDS: metformin XR 500 MG Tablet 1000 MG PO (08:12)
[2023-11-01] MEDS: lamoTRIgine 100 mg Tablet 300 MG PO (08:12)
[2023-11-01] MEDS: OLANZapine 5 mg ODT 10 MG PO (08:13)
[2023-11-01] MEDS: benztropine 1 mg Tablet PO (08:13)
[2023-11-01] MEDS: hyDROXYzine 25 mg Capsule PO ×2 (08:13→15:15)
--- NOTE | 2023-11-01 08:16 | PC.NURSE ---
Patient denies avh and si/hi. Patient keeps asking for a specific nurse over and over again, despite multiple staff members telling him she has staff meetings today. He has been asked multiple times to stop pretending to shoot guns in the hallway, but continues to do so. Patient also speaking gibberish and pretending he speaks Malay
[2023-11-01] MEDS: OLANZapine 10 mg VIAL IM (09:21)
[2023-11-01] MEDS: water for injection-sterile 10 ML (09:21)
--- NOTE | 2023-11-01 09:22 | PC.NURSE ---
Patient running up and down the hallway this morning, pretending to shoot guns and saluting to pretend he is following Hitler. This RN attempted to redirect the patient and asked if he would like to color or use chalk to draw on the chalkboard wall in the dayroom. Patient agreed to color and requested a [place] flag, which this RN was able to find and print for the patient. However, shortly after finishing coloring it he began lying on the floor and pretending to fire a rifle again. Patient asked several times for a specific RN, whom he refers to as his godmom . Staff has told him multiple times that we do not know where she is at this time. He has interrupted multiple assessments with other patients. When security arrived he told them he was afraid he was going to do something bad because he was feeling agitated. Zyprexa IM 10mg was injected into the left deltoid. Patient tolerated well.
[2023-11-01 14:00] VITALS: BP 146/87; PULSE 99; RESP 18; TEMP 37.1; O2SAT 95
[2023-11-01 15:07] LABS: SARS Covid-2 Antigen Negative (Negative)
--- NOTE | 2023-11-01 15:46 | PC.NURSE ---
COVID TEST IS NEGATIVE PER REQUEST OF NONDENOMINATIONAL TO [facility]. PT CURRENTLY HAS NO SYMPTOMS OR COMPLAINTS OF PAIN. SUPPORT VOICED.
--- NOTE | 2023-11-01 15:49 | W.PM.NPUDCS ---
Diagnoses at Discharge Discharge Diagnosis (1) Intermittent explosive disorder: Status: Acute (2) Oppositional defiant disorder: Status: Acute (3) Autistic disorder: Status: Acute (4) Schizoaffective disorder, unspecified: Status: Acute (5) Suicidal ideation: Status: Resolved Reason for Visit Reason for Visit: violent outbursts Involuntary Hold Information 96 Hour Hold: 96 Hour Involuntary Admission: Yes 96 Hour Hold Ending Date: 11/01/23 96 Hour Hold Ending Time: 00:01 Mental Status Exam MSE Comments: This is an obese white male in hospital scrubs with limited grooming and eye contact. No abnormal movements except for resolving psychomotor agitation. More cooperative with exam in mild distress. Speech was more spontaneous and decreased rate and normal volume with a very childlike nature. Mood described as better affect less agitated. Thought process linear. Thought content: Patient denied suicidal or homicidal ideation, there were no delusions reported or noted, he did not report auditory or visual hallucinations to this justowriter operator. Attention and concentration were limited but improving and memory was unreliable but none were formally tested. He is alert and oriented times x 3. Insight, judgment and impulse control are improving. Intellectual ability is impaired. Discharge Data Studies Completed and Pending: Pending at discharge Category Date Time Status Lamotrigine (Lami ctal) Level Timed Lab 10/24/23 17:58 Received Laboratory Results WBC 11.11 10^3/uL (3. 29-11.43) 10/24/23 18:11 RBC 4.31 10^6/uL (3.8 5-5.65) 10/24/23 18:11 Hgb 12.50 g/dL (11.27 -16.99) 10/24/23 18:11 Hct 37.7 % (37-53) 10/24/23 18:11 MCV 87.5 fl (82-101) 10/24/23 18:11 MCH 29.0 pg (27-33) 10/24/23 18:11 MCHC 33.2 g/dL (30-55) 10/24/23 18:11 RDW 13.8 % (12.1-15.1 ) 10/24/23 18:11 Plt Count 285 10^3/cmm (157 -399) 10/24/23 18:11 MPV 9.6 fL (7.4-10.4) 10/24/23 18:11 Neut % (Auto) 68.8 % 10/24/23 18:11 Lymph % (Auto) 22.9 % 10/24/23 18:11 Ch[place]ot % (Auto) 6.5 % 10/24/23 18:11 Eos % (Auto) 0.9 % 10/24/23 18:11 Baso % (Auto) 0.6 % 10/24/23 18:11 Neut # (Auto) 7.65 10^3/uL (1.8 -7.7) 10/24/23 18:11 Lymph # (Auto) 2.5 10^3/uL (0.8- 4.8) 10/24/23 18:11 [place]ot # (Auto) 0.7 10^3/uL (0.2- 0.9) 10/24/23 18:11 Eos # (Auto) 0.1 10^3/uL (0.0- 0.8) 10/24/23 18:11 Baso # (Auto) 0.1 10^3/uL (0.0- 0.1) 10/24/23 18:11 Nucleated RBC % (a uto) 0 % 10/24/23 18:11 Nucleated RBCs # 0.0 /100WBC 10/24/23 18:11 Sodium 145 mmol/L (136-1 45) 10/24/23 18:11 Potassium 3.7 mmol/L (3.5-5 .1) 10/24/23 18:11 Chloride 106 mmol/L (98-10 7) 10/24/23 18:11 Carbon Dioxide 27 mmol/L (22-29) 10/24/23 18:11 Anion Gap 15.7 (5-19) 10/24/23 18:11 BUN 12 mg/dL (6-20) 10/24/23 18:11 Creatinine 0.7 mg/dL (0.7-1. 2) 10/24/23 18:11 GFR Calculation 136.3 mL/min (90- 130) H 10/24/23 18:11 Glucose 83 mg/dL (65-115) 10/24/23 18:11 Calculated Osmolal ity 299 mOsm/kg (285- 295) H 10/24/23 18:11 Calcium 9.0 mg/dL (8.5-10 .5) 10/24/23 18:11 Total Bilirubin 0.4 mg/dL (0.15-1 .2) 10/24/23 18:11 AST 22 U/L (0-40) 10/24/23 18:11 ALT 52 U/L (0-41) H 10/24/23 18:11 Alkaline Phosphata se 96 U/L (40-130) 10/24/23 18:11 Total Protein 6.7 g/dL (6.6-8.7 ) 10/24/23 18:11 Albumin 4.1 g/dL (3.5-5.2 ) 10/24/23 18:11 Globulin 2.6 g/dL (1.3-4.6 ) 10/24/23 18:11 TSH 2.66 uIU/mL (0.27 -4.20) 10/24/23 18:11 Urine Color Yellow (Yellow) 10/28/23 11:25 Urine Appearance Slightly cloudy (CLEAR) 10/28/23 11:25 Urine pH 6 (5-7) 10/28/23 11:25 Ur Specific Gravit y 1.015 (1.005-1.0 30) 10/28/23 11:25 Urine Protein 1+ (Negative) H 10/28/23 11:25 Urine Glucose (UA) Norm (Normal) 10/28/23 11:25 Urine Ketones Negative (Negati ve) 10/28/23 11:25 Urine Blood Neg (Negative) 10/28/23 11:25 Urine Nitrate Negative (Negati ve) 10/28/23 11:25 Urine Bilirubin 1+ (Negative) H 10/28/23 11:25 Urine Urobilinogen 4 mg/dL (Negative ) H 10/28/23 11:25 Ur Leukocyte May ase Negative (Negati ve) 10/28/23 11:25 Urine RBC None /hpf (0-2) 10/28/23 11:25 Urine WBC 0-4 /hpf (0-5) H 10/28/23 11:25 Ur Squamous Epith Cells None /hpf (0-5) 10/28/23 11:25 Calcium Oxalate Cr ystal 5-10 /hpf H 10/28/23 11:25 Amorphous Sediment Not Reportable 10/28/23 11:25 Urine Bacteria Trace /hpf (NONE) 10/28/23 11:25 Hyaline Casts 5-10 /lpf H 10/24/23 16:46 Urine Mucus 2+ /hpf 10/24/23 16:46 Urine Sperm 2+ /hpf 10/28/23 11:25 Salicylates < 0.3 mg/dL (3-10 ) L 10/24/23 18:11 Urine Opiates Scre en Negative ng/mL (N egative) 10/24/23 16:46 Acetaminophen < 5.0 ug/mL (10-3 0) L 10/24/23 18:11 Ur Barbiturates Sc reen Negative ng/mL (N egative) 10/24/23 16:46 Ur Phencyclidine S crn Negative ng/mL (N egative) 10/24/23 16:46 Ur Amphetamines Sc reen Negative ng/mL (N egative) 10/24/23 16:46 U Benzodiazepines Scrn Negative ng/mL (N egative) 10/24/23 16:46 Urine Cocaine Scre en Negative ng/mL (N egative) 10/24/23 16:46 U Marijuana (THC) Screen Negative ng/mL (N egative) 10/24/23 16:46 Ethyl Alcohol 13 mg/dL (0-10) H 10/24/23 18:11 Influenza Type A A g negative (Negati ve) 10/24/23 18:24 Influenza Type B A g negative (Negati ve) 10/24/23 18:24 SARS-CoV-2 Ag (Rap id) Negative (Negati ve) 11/01/23 14:10 Vitals: Last Vital Signs Temp 98.8 F 11/01/23 14:00 Pulse 99 11/01/23 14:00 Resp 18 11/01/23 14:00 BP 146/87 11/01/23 14:00 Pulse Ox 95 11/01/23 14:00 O2 Del Method Room Air 11/01/23 06:00 Discharge Plan Discharge Patient Disposition: Home Condition: Stable Prescriptions: Continued atorvastatin 20 mg tablet 20 mg PO DAILY lamotrigine 100 mg tablet 300 mg PO DAILY ibuprofen [IBU] 600 mg tablet 600 mg PO Q6H PRN (Reason: Pain) potassium chloride 10 mEq tablet extended release 10 meq PO DAILY hydroxyzine HCl 25 mg tablet 25 mg PO TID Qty: 90 1RF lacosamide [Vimpat] 150 mg Tablet 150 mg PO BID trazodone 100 mg tablet 400 mg PO BEDTIME paliperidone 6 mg Tablet Extended Release 24 Hr 12 mg PO BEDTIME 30 Days Qty: 60 1RF lisinopril 10 mg tablet 10 mg PO DAILY metformin 500 mg tablet extended release 24 hr 1,000 mg PO DAILY All Day Allergy (cetirizine) 10 mg capsule 10 mg PO DAILY 30 Days Qty: 30 0RF Changed fluvoxamine 100 mg tablet 100 mg PO BID 30 Days Qty: 30 1RF Rx Instructions: 50 mg in morning and 100 mg at night 3 days then go to 100 mg bid Discharge Orders: Discharge Order (Routine); Ordered 11/01/23 Ordered By: Nikhil Gtz Referrals: Clarisse Black PMHNP [Staff Physician] - 11/06/23 10:30 am Suraj Davis [Primary Care Provider] - Discharge Diet: Regular Discharge Activity: Resume usual activity Patient Instructions: Opioid Safety Discharge Attestations NPU Time Spent in Discharge Care*: less than 30 min Specific Discharge Activities: Specific discharge activities: educating patient, discussing with nurse outreach case manager/social workers/dc planners, documenting/other paperwork and evaluating patient/reviewing data Coding Level of Care Code Acute Code for g Fwd Diagnoses Intermittent explosive disorder F63.81 Oppositional defiant disorder F91.3 Autistic disorder F84.0 Schizoaffective disorder, unspecified F25.9 Suicidal ideation R45.852
[2023-11-01 15:50] VITALS: BP 146/87; PULSE 99; RESP 18; TEMP 37.1; O2SAT 95
[2023-11-02 13:55] LABS: Lamotrigine (Lamictal) Level 5.6 mcg/mL (2.5-15.0)
== END 2023-11-01 16:21 | disposition home or self-care (01) | DRG 883 ==
LOC: ER 10-25 06:22 → ER IP 10-25 09:17 → NP 10-26 14:59
PROVIDERS: Emergency Medicine; Nurse Practitioner Family; Admitting Provider Psychiatry & Neurology Psychiatry; Emergency Provider Emergency Medicine; PCP Family Medicine; Visit Provider Psychiatry & Neurology Psychiatry
DX: F63.81 Intermittent explosive disorder (principal); R45.851 Suicidal ideations; F25.9 Schizoaffective disorder, unspecified; F91.1 Conduct disorder, childhood-onset type; F84.0 Autistic disorder; F70 Mild intellectual disabilities; F91.3 Oppositional defiant disorder; E66.9 Obesity, unspecified; Z68.32 Body mass index [BMI] 32.0-32.9, adult; Z79.84 Long term (current) use of oral hypoglycemic drugs
CPT/HCPCS: 36415; 80053; 80175; 80306; 80307; 81003; 81015; 84443; 85025; 87426; 87804; 93005; 96372; 97150; 97165; 99285; J0515; J1630; J2060; J3486; J3490